=== PATIENT | female | born 1940 | race Caucasian/White ===

== ENCOUNTER 2016-09-27 22:37 | Emergency (ER) | payer MEDICARE, BC ==
[2015-10-10 13:34] VITALS: BMI 22.6
[~2016-09-27 22:37] MED LIST: AMOXICILLIN500 M1 PO; FLECAINIDE ACE100 MG PO; FLORINEF 0.1 M0.1 MG PO; PLAVIX75 MG PO; VALIUM5 MG PO
[2016-09-27 23:19] LABS: BASOPHILS 0.4 % (0.0-2.0); EOSINOPHILS 1.3 % (0-7); HEMATOCRIT 40.6 % (36.0-48.0); HEMOGLOBIN 13.7 g/dL (12-16); IMMATURE GRANULOCYTES 0.1 % (0-5); MCH 29.8 pg (26.0-34.0); MCHC 33.7 g/dL (31.0-37.0); MCV 88.5 fL (80.0-100.0); MONOCYTES 9.2 % (2-11); PLATELET COUNT 167 10x3/uL (130-400); RBC 4.59 10x6/uL (4.00-5.40); RDW 13.5 % (11.5-14.5); WBC 6.8 10x3/uL (4.8-10.8)
[2016-09-27 23:43] LABS: ALKALINE PHOSPHATASE 56 U/L (46-116); ALT (SGPT) 24 U/L (10-68); BILIRUBIN - TOTAL 0.37 mg/dL (0.2-1.3); CALC OSMOLALITY 286 mosm/kg (275-300); CALCIUM 9.5 mg/dL (8.5-10.1); CARBON DIOXIDE 28.6 mmol/L (21.0-32.0); CHLORIDE - SERUM 107 mmol/L (98-107); GLUCOSE 103 mg/dL (74-106); POTASSIUM - SERUM 4.7 mmol/L (3.5-5.1); PROTEIN - SERUM 6.7 g/dL (6.4-8.2); SODIUM 143 mmol/L (136-145); UREA NITROGEN 18 mg/dL (7-18); eGFR NON AFRICAN AMERICAN 57 mL/min (90-120)
[2016-09-28 00:02] LABS: APPEARANCE CLEAR (CLEAR); BILIRUBIN NEGATIVE (NEGATIVE); COLOR YELLOW (YELLOW); GLUCOSE NEGATIVE (NEGATIVE); KETONE NEGATIVE (NEGATIVE); LEUKOCYTE ESTERASE NEGATIVE (NEGATIVE); NITRITE NEGATIVE (NEGATIVE); PH 5.5 (5.0-6.0); PROTEIN NEGATIVE (NEGATIVE); SPECIFIC GRAVITY 1.005 (1.005-1.020); UROBILINOGEN NORMAL (NORMAL)
[2016-09-28 01:24] LABS: CKMB 2.4 U/L (0.0-3.6); CREATINE KINASE 143 UL (21-215)
[2016-09-28 01:35] LABS: TROPONIN-I < 0.017 ng/mL (0.000-0.060)
== END 2016-09-28 01:00 | disposition home or self-care (01) ==
LOC: D.ER 22:37
PROVIDERS: Emergency Medicine
DX: F41.9 Anxiety disorder, unspecified (principal); Z95.0 Presence of cardiac pacemaker; Z95.5 Presence of coronary angioplasty implant and graft

== ENCOUNTER → 2016-12-17 10:44 | Outpatient (CLI) | payer MEDICARE, BC ==
[2015-10-10 13:34] VITALS: BMI 22.6
[~2016-12-17 10:44] MED LIST changes: +EFFIENT10 MG PO
== END | disposition home or self-care (01) ==
LOC: D.CT 10:44
DX: M54.5 Low back pain (principal); R53.1 Weakness

== ENCOUNTER 2016-12-26 16:29 | Emergency (ER) | payer MEDICARE, BC ==
[2015-10-10 13:34] VITALS: BMI 22.6
[~2016-12-26 16:29] MED LIST changes: -EFFIENT10 MG PO
[2016-12-26 18:01] LABS: BASOPHILS 0.3 % (0.0-2.0); HEMATOCRIT 41.3 % (36.0-48.0); HEMOGLOBIN 13.7 g/dL (12-16); LYMPHOCYTES 45.7 % (15-50); MCHC 33.2 g/dL (31.0-37.0); MCV 90.4 fL (80.0-100.0); MEAN PLATELET VOLUME 10.7 fL (7.4-10.4); MONOCYTES 10.2 % (2-11); NEUTROPHILS 42.8 % (40-80); PLATELET COUNT 176 10x3/uL (130-400); RBC 4.57 10x6/uL (4.00-5.40); RDW 13.7 % (11.5-14.5); WBC 7.3 10x3/uL (4.8-10.8)
[2016-12-26 18:37] LABS: CALC OSMOLALITY 278 mosm/kg (275-300); CALCIUM 9.4 mg/dL (8.5-10.1); CHLORIDE - SERUM 103 mmol/L (98-107); CREATINE KINASE 217 UL (21-215); GLUCOSE 98 mg/dL (74-106); POTASSIUM - SERUM 4.4 mmol/L (3.5-5.1); PRO BNP 110 pg/mL (0-450); SODIUM 138 mmol/L (136-145); UREA NITROGEN 20 mg/dL (7-18); eGFR NON AFRICAN AMERICAN 57 mL/min (90-120)
[2016-12-26 18:45] LABS: TROPONIN-I < 0.017 ng/mL (0.000-0.060)
[2016-12-26 18:46] LABS: CKMB 4.5 U/L (0.0-3.6)
== END 2016-12-26 19:25 | disposition home or self-care (01) ==
LOC: D.ER 16:29
PROVIDERS: Family Medicine
DX: R06.00 Dyspnea, unspecified (principal); Z98.890 Other specified postprocedural states; F41.9 Anxiety disorder, unspecified; I49.5 Sick sinus syndrome; Z95.0 Presence of cardiac pacemaker; I44.7 Left bundle-branch block, unspecified

== ENCOUNTER 2016-12-28 09:16 | Outpatient (CLI) | payer MEDICARE, BC ==
[~2016-12-28] VITALS: Ht 165.1 cm; Wt 59.1 kg
--- NOTE | ~2016-12-28 | HEMODYNAMI ---
PATIENT:RENATA RIVERA MEDICAL RECORD: [id number] : 42 LOCATION:[facility] ADMISSION DATE: 12/28/16 Generatedon:12/28/201613:25 Patient name: RENATA RIVERA Patient #: [id number] SSN: DO B: 1940 Date of study: 12/28/2016 Page: Of Hemodynamic Procedure Report Patient Data Patient Demographics Procedure consent was obtained First Name: RENATA Gender: Female Last Name: MIGUEL : 1940 [facility] Initial: YUVAL Age: 76 year(s) Patient #: [id number] Race: Additional ID: [id number] Contact details [address]: [address] [place] [address] ROAD State: [place] City: [place] Zip code: [address] Past Medical History Allergies Allergen Reaction Date Comments Reported Other allergy 02/16/2015 CIPRO, FLAGYL Admission Admission Data Admission Date: 12/28/2016 Admission Time: 9:16 Procedure Procedure Types Cath Procedure Diagnostic Procedure LHC [facility] w/Coronaries FFR/IVUS Intra-Coronary IVUS Initial PCI Procedure Coronary Stent Initial Miscellaneous Procedures Moderate Sedation up to 15 minutes Procedure Description Procedure Date Procedure Date: 12/28/2016 Procedure Start Time: 13:07 Procedure End Time: 13:25 Procedure Staff Name Function Dago Medina MD Performing Physician Abelino Llanos RT Scrub Veronica Bhatia RN Nurse Lupillo Nunez RT Monitor Procedure Data Cath Procedure Fluoroscopy Diagnostic fluoroscopy Total fluoroscopy Time: 4.1 time: 4.1 min min Diagnostic fluoroscopy Total fluoroscopy dose: 232 dose: 232 mGy mGy Contrast Material Contrast Material Type Amount (ml) Isovue 300 93 Entry Location Entry Primary Successful Side Size Upsize Upsize Entry Closure Villeda ccessful Closure Location (Fr) 1 (Fr) 2 (Fr) Remarks Device Remarks Radial Right 6 Fr Mechanical artery Short Compression Estimated blood loss: 10 ml Diagnostic catheters Device Type Used For End Catheter Placement Terumo 5Fr [place] 110cm Procedure catheter Procedure Complications No complications Procedure Medications Medication Administration Route Dosage Oxygen NC 2 l/min Heparin Flush Bag added to field 2 bags (1000units/500ml NS) Lidocaine 2% added to field 20 Radial Cocktail added to field 1 syringe (Verapomil 2mg/Nitro 400mcg/Heparin 1500units) Versed I.V. 1 mg Fentanyl I.V. 50 mcg Radial Cocktail I.A. 1 syringe (Verapomil 2mg/Nitro 400mcg/Heparin 1500units) Versed I.V. 1 mg Fentanyl I.V. 50 mcg Fentanyl I.V. 50 mcg Heparin Bolus I.V. 4000 units Integrilin (Bolus I.V. 5 ml 2mg/ml) Effient P.O. 60 mg Hemodynamics Rest Heart Rate: 76 (bpm) Pressure Samples Time Site Value (mmHg) Purpose Heart Use Rate(bpm) 13:13 AO 95/50(67) Snapshot 76 Snapshots Pre Cath Intra NCS Post Cath Vital Signs Time Heart Resp SPO2 etCO2 [id number] NIBP (mmHg) Rhythm Pain Sedation Rate (ipm) (%) (mmHg) (mmHg) Status Level (bpm) 12:48:21 75 16 99 0 0 130/77(108) NSR 0 (11) 10(A) , No pain 12:52:33 77 13 100 0 0 129/83(98) NSR 0 (11) 10(A) , No pain 12:56:45 71 15 100 0 0 136/76(104) NSR 0 (11) 10(A) , No pain 13:01:01 70 16 100 0 0 128/72(106) NSR 0 (11) 10(A) , No pain 13:05:17 69 16 100 0 0 108/63(82) NSR 0 (11) 10(A) , No pain 13:09:27 75 16 100 0 0 115/62(96) NSR 0 (11) 9(A) , No pain 13:13:43 77 16 99 0 0 105/51(73) NSR 0 (11) 9(A) , No pain 13:17:51 90 22 97 0 0 103/75(93) NSR 0 (11) 9(A) , No pain 13:21:58 87 20 99 0 0 112/61(84) NSR 0 (11) 10(A) , No pain Medications Time Medication Route Dose Verified Delivered Reason Note s Effectiveness by by 12:52:25 Oxygen NC 2 l/min Dago Veronica Per physician Carol Bhatia RN 12:52:34 Heparin Flush added 2 bags Dago Loza used for Bag to Carol Medina MD procedure (1000units/500ml field NS) 12:52:42 Lidocaine 2% added 20ml Dago Mortensenrey used for to vial Carol Medina MD procedure field 12:52:50 Radial Cocktail added 1 Dago Dago used for (Verapomil to syringe Carol Medina MD procedure 2mg/Nitro field 400mcg/Heparin 1500units) 13:05:27 Versed I.V. 1 mg Dago Veronica for sedation Carol Bhatia RN 13:05:34 Fentanyl I.V. 50 mcg Dago Veronica for sedation Carol Bhatia RN 13:07:51 Versed I.V. 1 mg Dago Veronica for sedation Carol Bhatia RN 13:07:59 Fentanyl I.V. 50 mcg Dago Veronica for sedation Carol Bhatia RN 13:08:49 Radial Cocktail I.A. 1 Dago Dago for (Verapomil syringe Carol Medina MD vasodilation 2mg/Nitro 400mcg/Heparin 1500units) 13:09:12 Fentanyl I.V. 50 mcg Dago Veronica for sedation Carol Bhatia RN 13:13:34 Heparin Bolus I.V. 4000 Dago Veronica for dose units Carol Bhatia RN anticoagulation verified with dr medina 13:20:10 Integrilin I.V. 5 ml Dago Veronica for 5ml (Bolus 2mg/ml) Carol Bhatia RN antiplatelet wasted therapy 13:22:14 Effient P.O. 60 mg Dago Veronica for Carol Bhatia RN antiplatelet therapy Procedure Log Time Note 12:25:06 Veronica Bhatia RN sent for patient. Start room use. 12:31:55 ACC Patient presents with Stable Angina CCS Anginal Class 2--Slight limitation of ordinary activity. 12:31:58 Diagnostic Cath status Elective 12:40:51 Time tracking: Regular hours 12:41:02 Plan of Care:Hemodynamics will remain stable., Cardiac rhythm will remain stable., Comfort level will be maintained., Respiratory function will remain adequate., Patient/ family verbilizes understanding of procedure., Procedure tolerated without complication., Recovers from procedure without complications.. 12:41:10 Patient received from Pre/Post Procedure Room to CCL 1 Alert and oriented. Tansferred to table in Supine position. 12:41:12 Warm blankets applied, and tawanda hugger turned on for patient comfort. 12:41:13 Correct patient and procedure confirmed by team. 12:41:14 Signed procedure consent form obtained from patient. 12:41:15 ECG and BP/O2 sat monitors applied to patient. 12:47:12 Vital chart was started 12:52:25 Oxygen 2 l/min NC was administered by Veronica Bhatia RN; Per physician; 12:52:34 Heparin Flush Bag (1000units/500ml NS) 2 bags added to field was administered by Dago Medina MD; used for procedure; 12:52:42 Lidocaine 2% 20ml vial added to field was administered by Dago Medina MD; used for procedure; 12:52:50 Radial Cocktail (Verapomil 2mg/Nitro 400mcg/Heparin 1500units) 1 syringe added to field was administered by Dago Medina MD; used for procedure; 12:55:43 Baseline sample Acquired. 12:55:46 Rhythm: sinus rhythm 12:55:49 Full Disclosure recording started 12:56:14 H&P Date Dictated: 12/17/2016 Within 30 days and on chart., H&P Addendum completed by physician on day of procedure. (MUST COMPLETE FOR ALL OUTPATIENTS). 12:56:15 Pre-procedure instructions explained to patient. 12:56:15 Pre-op teaching completed and patient verbalized understanding. 12:56:17 Family in waiting room. 12:56:19 Patient NPO since Midnight. 12:56:22 Is the patient allergic to Iodine/contrast media? No. 12:56:28 Is patient on blood thinner?No 12:56:31 Patient diabetic? No. 12:56:33 Previous problem with sedation/anesthesia? No ? 12:56:35 Snore? No 12:56:36 Sleep apnea? No 12:56:37 Deviated septum? No 12:56:37 Opens mouth fully? Yes 12:56:38 Sticks out tongue? Yes 12:56:40 Airway obstruction? No ? 12:56:41 Dentures? No ? 12:56:44 Pre procedure: right dorsailis pedis pulse 1+ Palpable, but thready & weak; easily obliterated 12:56:46 Modified Gorge's test Ulnar < 7 seconds 12:56:48 Patient pain scale 0/10 ?. 12:56:55 IV patent on arrival in left forearm with 0.9% NaCl at [facility]. 12:57:02 Lab results completed and on chart. 12:57:07 Right Radial & Right Groin area was prepped with chlora-prep and draped in sterile fashion 12:57:15 Alarms reviewed by R. N. 12:57:16 Sharps counted by scrub and verified by R.N. 13:00:42 Zero performed for pressure channel P1 13:04:18 --------ALL STOP TIME OUT------ 13:04:18 Final Timeout: patient, procedure, and site verified with staff and physician. All members of the team are in agreement. 13:04:21 Right Radial & Right Groin site verified by team. 13:04:24 Physical assessment completed. ASA score P 2 - A patient with mild systemic disease as per Dago Medina MD. 13:04:27 Sedation plan: IV Moderate Sedation Versed, Fentanyl 13:05:27 Versed 1 mg I.V. was administered by Veronica Bhatia RN; for sedation; 13:05:34 Fentanyl 50 mcg I.V. was administered by Veronica Bhatia RN; for sedation; 13:07:34 Use device set Radial Dx 13:07:36 Acist Manifold opened to sterile field. 13:07:36 Tegaderm 4 x 4 opened to sterile field. 13:07:37 Acist Hand Control opened to sterile field. 13:07:39 Acist Syringe opened to sterile field. 13:07:39 Medline Cath Pack opened to sterile field. 13:07:39 Bag Decanter opened to sterile field. 13:07:40 Terumo 6Fr Slender Glidesheath opened to sterile field. 13:07:41 St Jeff 260cm J .035 wire opened to sterile field. 13:07:41 MBrace Wrist Support opened to sterile field. 13:07:47 Procedure started. 13:07:51 Versed 1 mg I.V. was administered by Veronica Bhatia RN; for sedation; 13:07:51 Local anesthetic to right radial artery with Lidocaine 2% by Dago Medina MD.INITIAL ACCESS ONLY 13:07:59 Fentanyl 50 mcg I.V. was administered by Veronica Bhatia RN; for sedation; 13:08:24 A 6 Fr Short sheath was inserted into the Right Radial artery 13:08:49 Radial Cocktail (Verapomil 2mg/Nitro 400mcg/Heparin 1500units) 1 syringe I.A. was administered by Dago Medina MD; for vasodilation; 13:09:07 A Integrateumo 5Fr [place] 110cm catheter was advanced over the wire and used for Procedure. 13:09:12 Fentanyl 50 mcg I.V. was administered by Veronica Bhatia RN; for sedation; 13:09:32 LV angiography performed. 13:09:34 LV gram done using BRIGGS 13:09:39 EF : 55 % 13:09:45 Injector settings: Ml/sec: 7, Volume: 15, 13:10:07 LCA angiography performed. 13:11:12 OfficialVirtualDJ BasixCompak Inflation Kit opened to sterile field. 13:11:12 Li Whisper J 300cm 0.014 guide wire opened to sterile field. 13:11:13 Trevor Hughes Eagleye IVUS Catheter opened to sterile field. 13:11:37 RCA angiography performed. 13:11:40 Catheter exchanged over wire. 13:11:54 Cordis 6FR XBLAD 3.5 guide catheter opened to sterile field. 13:13:14 6 Fr XBLAD 3.5 guide catheter was inserted over the wire 13:13:30 Whisper wire advanced. 13:13:34 Heparin Bolus 4000 units I.V. was administered by Veronica Bhatia RN; for anticoagulation; dose verified with dr medina 13:13:37 Wire advanced across lesion. 13:13:48 IVUS catheter advanced over wire. 13:14:05 IVUS pass to LAD lesion performed. 13:16:50 IVUS catheter removed over wire. 13:17:29 Procedure type changed to Cath procedure, Diagnostic procedure, LHC, LHC w/Coronaries, FFR/IVUS, Intra-Coronary IVUS Initial, PCI procedure, Coronary Stent Initial, Miscellaneous Procedures, Moderate Sedation up to 15 minutes 13:19:14 Inflation Number: 1 A Medtronic Integrity 2.75 X 12 stent was prepped and advanced across the Undefined1. The stent was deployed at 13 CLAUS for 0:10 (min:sec). 13:19:33 Multiple inflations made at 13 Atms. 13:19:43 Catheter removed. 13:19:53 Terumo TR Band Standard opened to sterile field. 13:20:10 Integrilin (Bolus 2mg/ml) 5 ml I.V. was administered by Veronica Bhatia RN; for antiplatelet therapy; 5ml wasted 13:20:21 Sheath removed intact; hemostasis achieved with Mechanical Compression to the Right Radial artery. 13:20:23 Procedure ended.(Physican Out) 13::14 Effient 60 mg P.O. was administered by Veronica Bhatia RN; for antiplatelet therapy; 13::22 Fluoroscopy time 04.10 minutes. 13:22:26 Flurop Dose total: 232 13:22:26 Fluoroscopy dose: 232 mGy 13:22:30 Contrast amount:Isovue 300 93ml. 13:22:32 Sharps counted by scrub and verified by R.N. 13:22:34 TR band inflated with 10cc of air. 13:22:35 Insertion/operative site no bleeding no hematoma. 13:22:38 Post Procedure Pulses reassessed and unchanged 13:22:41 Post-procedure physical assessment completed. ASA score P 2 - A patient with mild systemic disease as per Dago Medina MD. 13:22:45 Post procedure rhythm: unchanged. 13:22:48 Estimated blood loss: 10 ml 13:22:50 Post procedure instruction explained to patient.Patient verbalizes understanding. 13:22:51 Patient needs reinforcement of post procedure teaching. 13:22:51 Procedure and supply charges have been captured, reviewed, submitted and are correct. 13:22:54 Procedure Complication : No complications 13:25:13 Vital chart was stopped 13:25:14 See physician's report for complete and final results. 13:25:20 Report given to Pre/Post Procedure Room. 13:25:24 Patient transfered to Pre/Post Procedure Room with Stretcher. 13:25:26 Procedure ended. 13:25:26 Full Disclosure recording stopped 13:25:29 End room use (Document Last) Intervention Summary Intervention Notes Time ActionType Lesion and Equipment Action# Pressure Duration Attributes Used 13:19:[address] Place stent Undefined1 Medtronic 1 13 00:10 Integrity 2.75 X 12 stent Device Usage Item Name Manufacture Quantity Catalog Hospital Part Current Minimal Lot# / Number Charge Number Stock Stock Serial# Code Acist Acist 1 21993 415337 250258 491915 5 Manifold Medical Systems Inc Tegaderm 4 3M 1 1626W 604072 310366 886697 5 x 4 Acist Hand Acist 1 73309 329310 184396 551705 5 Control Medical Systems Inc Acist Acist 1 99939 583672 478962 989359 20 Syringe Medical Systems Inc Medline Cardinal 1 [id number] 704623 79758 833638 5 Cath Pack Health Bag Microtek 1 2002S 683018 48379 965094 5 Decanter Medical Inc. Terumo 6Fr Terumo 1 [id number] 183498 990320 175965 [address] St Jeff 1 803689 174512 958761 388235 30 260cm J .035 wire MBrace Advanced 1 140-0250-00 173370 12658 289361 5 Wrist Vascular Support Dynamics Terumo 5Fr Terumo 1 40-5005 659563 112951 431013 5 [place] 110cm catheter Merit Merit 1 [id number] 874491 729562 856711 15 BasixCompak Medical Inflation Kit Li Li 1 [id number] 448519 066001 607667 5 Whisper J Vascular 300cm 0.014 guide wire Trevor Trevor 1 [id number] 334663 748118 718042 8 Hughes Eagleye IVUS Catheter Cordis 6FR Cardinal 1 [id number] 299854 642984 319090 10 XBLAD 3.5 Health guide catheter Medtronic Medtronic 1 [id number] 204481 727886 5 [id number] Integrity 2.75 X 12 stent Terumo TR Terumo 1 [id number] 581021 254336 400430 40 Band Standard Signature Audit [place] Stage Time Signature Unsigned Intra-Procedure 12/28/2016 Lupillo Nunez 1:25:55 PM RT(R) Signatures Monitor : Lupillo Nunez RT Signature : Date : Time : [address] [place] [address]
[2016-12-28 10:40] VITALS: BP 135/73; Ht 165.1 cm; Wt 59.1 kg
[2016-12-28 11:38] LABS: BASOPHILS 0.3 % (0.0-2.0); EOSINOPHILS 0.4 % (0-7); HEMATOCRIT 41.4 % (36.0-48.0); HEMOGLOBIN 13.9 g/dL (12-16); IMMATURE GRANULOCYTES 0.1 % (0-5); LYMPHOCYTES 37.9 % (15-50); MCHC 33.6 g/dL (31.0-37.0); MCV 89.2 fL (80.0-100.0); MEAN PLATELET VOLUME 10.3 fL (7.4-10.4); MONOCYTES 6.7 % (2-11); NEUTROPHILS 54.6 % (40-80); PLATELET COUNT 174 10x3/uL (130-400); RBC 4.64 10x6/uL (4.00-5.40); RDW 13.9 % (11.5-14.5); WBC 7.9 10x3/uL (4.8-10.8)
[2016-12-28 11:47] LABS: ANION GAP 10.1 mmol/L (8-16); CALCIUM 9.2 mg/dL (8.5-10.1); CARBON DIOXIDE 24.7 mmol/L (21.0-32.0); CREATININE - SERUM 0.8 mg/dL (0.6-1.3); POTASSIUM - SERUM 3.8 mmol/L (3.5-5.1)
[2016-12-28] MEDS ORDERED: EFFIENT10 MG PO (13:53)
--- NOTE | 2016-12-28 17:59 | NUR ---
1400-RESTING, TR BAND IN PLACE, NO BLEEDING 1430-SLEEPING NO CHANGES
--- NOTE | 2016-12-28 18:12 | NUR ---
1600-EATING SANDWICH, TR BAND INTACT, NO BLEEDING 1630-2CC AIR REMOVED FROM TR BAND- NO BLEEDING 1645-3CC AIR REMOVED FROM TR BAND, NO CHANGES, PT VERY COMPLIANT 1700-3CC AIR REMOVED- NO BLEEDING OR HEMATOMA NOTED 1705-ALL AIR OUT OF TR BAND- NO BLEEDING OR HEMATOMA. UP TO REST ROOM- VOID 1720-IV D'C WITH CATH TIP INTACT, WRITTEN AND VERBAL INSTRUCTIONS GIVEN TO PT AND , VERBAL UNDERSTANDING NOTED. AT SIDE AND GOOD WITH GOING HOME. NO DISTRESS, NO HEMATOMA OR BLEEDING AT SITE- BAND AID APPLIED.
--- NOTE | 2017-01-11 08:58 | OP ---
PATIENT NAME: RENATA RIVERA MEDICAL RECORD: [id number] :42 LOCATION:D.CAT ADMISSION DATE: SURGEON: JASPREET HALL MD DATE OF OPERATION: 12/28/2016 PROCEDURES: 1. PTCA stent, LAD. 2. Intravascular ultrasound, LAD. 3. Left heart catheterization. 4. Selective coronary angiography. 5. Left ventriculogram. INDICATIONS: Angina and coronary artery disease. PROCEDURE IN DETAIL: After informed consent was obtained and after a detailed explanation of the risks, benefits as well as alternative therapies, the patient elected to proceed with angiogram and angioplasty. The right femoral area was prepped and draped in normal sterile fashion. The right femoral artery was cannulated via modified Seldinger technique with placement of 6-Nepali sheath. All catheters exchanged through this sheath. FINDINGS: The left ventriculogram was performed in standard 30-degree BRIGGS view, reveals good cardiac wall motion throughout all segments. Overall ejection fraction is 60%. SELECTIVE CORONARY ANGIOGRAPHY: 1. Left main showed no significant angiographic disease. 2. Left anterior descending has previously placed stent that is widely patent; however, distal to this, intravascular ultrasound confirmed that there is greater than 70% stenosis. 3. Left circumflex shows mild irregularities, but no flow-limiting stenosis. 4. Right coronary has mild irregularities, but no flow-limiting stenosis. PTCA STENT OF THE LAD: The stent used was 2.75 x 12 mm Integrity. Result was 0% residual stenosis. OVERALL IMPRESSION: Successful percutaneous transluminal coronary angioplasty stent of the left anterior descending going from 70%-75% initial stenosis to 0% residual. TRANSINT:[id number] Voice Confirmation ID: [id number] DOCUMENT ID: [id number] JASPREET HALL MD at 0858 CC: [id number] DICTATION DATE: 01/09/17 1619 FLUID POWER MECHANIC: 01/09/17 2341 [facility] CLI 12/28/[address] [address]
== END 2016-12-28 17:30 | disposition home or self-care (01) ==
LOC: D.CATH 09:16
PROVIDERS: Internal Medicine Interventional Cardiology
DX: I25.119 Atherosclerotic heart disease of native coronary artery with unspecified angina pectoris (principal); Z95.5 Presence of coronary angioplasty implant and graft

== ENCOUNTER 2017-02-22 07:04 | Day surgery (SDC) | payer MEDICARE, BC ==
[~2017-02-22] VITALS: Ht 165.1 cm; Wt 57.3 kg
--- NOTE | ~2017-02-22 | OP ---
PATIENT NAME: RENATA RIVERA MEDICAL RECORD: [id number] :42 LOCATION:[facility] ADMISSION DATE: SURGEON: AMOS LAWS DO DATE OF OPERATION: 02/22/2017 PROCEDURE: EGD with biopsy and ERCP with dilation of the biliary stricture, collection of biliary brushings, sphincterotomy, and biliary and pancreatic duct stent placement. INDICATIONS FOR PROCEDURE: Abnormal findings on CT and common bile duct dilation. SCOPE: Olympus video duodenoscope. MEDICATIONS: General anesthesia provided by anesthesia. ESTIMATED BLOOD LOSS: Minimal. COMPLICATIONS: None. FINDINGS: Informed consent was given. The patient was made comfortable with the above medication. After being intubated and moved in appropriate position, an Olympus gastroscope was placed through the mouth under direct visualization and advanced to the second portion of the duodenum. Regular viewing endoscopy revealed some erythema and granularity in the stomach consistent with gastritis. Two biopsies were taken to submit for histology and to rule out H. pylori. The regular endoscope was withdrawn from the patient and the side-viewing duodenoscope was placed through the mouth under direct visualization and advanced down to the second portion of the duodenum, where the ampulla was visualized. Multiple cannulation attempts were made and eventually, the pancreatic duct was cannulated. A pancreatogram was performed and revealed a normal-appearing pancreatic duct without strictures, stones or other abnormalities. A guidewire was left in place and biliary cannulation was achieved. A cholangiogram was performed with difficulty as the distal common bile duct would not fill with contrast. The intrahepatic ducts were visualized and were prominent, but not abnormal appearing. Sphincterotomies were performed on both the pancreatic duct sphincter and the biliary sphincter. A dilating balloon was placed into the bile duct and revealed that there was a mild stricture involving the distal common bile duct. This was dilated up to 4 mm using a [employer] Hurricane balloon. Balloon sweeps were performed without removal of calculi or other objects. A biliary cytology brush was placed into the duct and multiple brushings were performed. Fluid was aspirated and both of these will be sent for cytology. A 10-Salvadorean 7 cm straight plastic stent was placed in the bile duct and a 7-Salvadorean 10 cm straight plastic stent was placed in the pancreatic duct. I will bring the patient back within 1 week to remove these stents. The scope was withdrawn from the patient and images were acquired. The patient tolerated the procedure well and there were no complications. IMPRESSION: Distal common bile duct stricture. Biliary brushings and fluid aspiration was performed to send for cytology. At this time, this does not appear to be approximately malignant process. The patient has never had abnormal liver enzymes or lipase levels indicating that there is no obstruction. We will await biopsy results. OPERATIVE REPORT [id number] RENATA RIVERA PLAN AND RECOMMENDATIONS: 1. Return within 1 week for stent removal of both the bile duct stent and pancreatic duct stent. 2. Consider endoscopic ultrasound at [facility] [place] to confirm that there are no abnormalities within the pancreatobiliary system which has caused the abnormal CT findings. TRANSINT:[id number] Voice Confirmation ID: [id number] DOCUMENT ID: [id number] AMOS LAWS DO CC: [id number] DICTATION DATE: 02/22/17 1136 TRANSIT MIX OPERATOR: 02/22/172111 [facility] 02/22/17 [facility] [address] [place] [address]
[~2017-02-22 07:04] MED LIST changes: +EFFIENT10 MG PO
[2017-02-22 07:46] VITALS: BP 124/76; Ht 165.1 cm; Wt 57.3 kg
[2017-02-22 08:15] LABS: BASOPHILS 0.2 % (0-2); EOSINOPHILS 0.6 % (0-7); HEMATOCRIT 40.7 % (36.0-48.0); HEMOGLOBIN 13.6 g/dL (12-16); IMMATURE GRANULOCYTES 0.1 % (0-5); LYMPHOCYTES 21.8 % (15-50); MCH 30.2 pg (26.0-34.0); MCHC 33.4 g/dL (31.0-37.0); MCV 90.4 fL (80.0-100.0); MEAN PLATELET VOLUME 9.9 fL (7.4-10.4); NEUTROPHILS 71.3 % (40-80); PLATELET COUNT 186 10x3/uL (130-400); RDW 13.9 % (11.5-14.5); WBC 8.2 10x3/uL (4.8-10.8)
[2017-02-22 08:29] LABS: ALBUMIN 3.8 g/dL (3.4-5.0); ANION GAP 12.9 mmol/L (8-16); BILIRUBIN - TOTAL 0.5 mg/dL (0.2-1.3); CALCIUM 9.2 mg/dL (8.5-10.1); CARBON DIOXIDE 25.8 mmol/L (21.0-32.0); POTASSIUM - SERUM 3.7 mmol/L (3.5-5.1); PROTEIN - SERUM 6.8 g/dL (6.4-8.2)
[2017-02-22 08:51] LABS: INR 0.94 (0.85-1.17); PROTIME 12.4 SECONDS (11.6-15.0)
--- NOTE | 2017-02-22 11:47 | NUR ---
1 PANCREATIC AND BILIARY STENT PLACED PANCREATIC 7F X 10 CM. AND BILIARY 10F X 7CM PLACED.
--- NOTE | 2017-02-22 11:50 | NUR ---
EGD DONE ERCP WITH SPHINCTEROTOMY CYTOLOGY BRUSHINGS DILATED DUCT AND 2 STENTS PLACED.
--- NOTE | 2017-02-22 12:00 | NUR ---
24 CONTRAST USED AND 2.32 RADIOLOGY TIME.
--- NOTE | 2017-02-22 14:30 | NUR ---
IV REMOVED INTACT. DISCHARGE INSTRUCTIONS GIVEN, VOICED UNDERSTANDING. DRESSED AND READY FOR DISCHARGED. C/O EPIGASTRIC PAIN. I CALLED DR OLIVER AND LEFT MESSAGE TO CALL BACK CONCERNING PAIN. PATIENT AND INFORMED DR LAWS WAS CALLED AND MESSAGE LEFT, PATIENT STATES SHE DOES NOT WANT TO WAIT AND WOULD LIKE A WHEELCHAIR TO GO HOME.
--- NOTE | 2017-02-22 14:35 | NUR ---
DR LAWS HERE. INFORMED HIM PATIENT HAS LEFT AND THE PAIN SHE WAS HAVING. 'S CELL PHONE GIVEN TO HIM.
== END 2017-02-22 14:30 | disposition home or self-care (01) ==
LOC: D.OPS 07:04
PROVIDERS: Anesthesiology; Internal Medicine Gastroenterology
DX: K83.1 Obstruction of bile duct (principal); K29.50 Unspecified chronic gastritis without bleeding

== ENCOUNTER 2017-02-25 08:21 | Observation (INO) | payer MEDICARE, BC ==
[2017-02-25] VITALS (7 sets, daily range): BP systolic 114–144; BP diastolic 69–81; Ht 165.1 cm; Wt 57.3 kg
[~2017-02-25] VITALS: Ht 165.1 cm; Wt 57.3 kg
--- NOTE | ~2017-02-25 | OP ---
PATIENT NAME: RENATA RIVERA MEDICAL RECORD: [id number] :42 LOCATION:D.MS Philippe2214 ADMISSION DATE:02/25/17 SURGEON: AMOS LAWS DO DATE OF OPERATION: 02/25/2017 PROCEDURE: EGD with biliary and pancreatic stent removal. INDICATIONS: Removal of stents status post ERCP 3 days ago. SCOPE: Olympus video gastroscope. MEDICATIONS: Propofol 120 mg IV per anesthesia. ESTIMATED BLOOD LOSS: Minimal. COMPLICATIONS: None. FINDINGS: Informed consent was given. The patient was made comfortable with the above medication. After reaching an adequate level of sedation by slow IV push, the patient was placed on her left side. The endoscope was then advanced under direct visualization down to the second portion of the duodenum where the ampulla was visualized. The biliary stent was removed first using a snare and completely removed with the endoscope to take the stent out. Scope was then advanced back down through the mouth under direct visualization to the second portion of the duodenum where the pancreatic stent was then grasp with a snare and removed out through the mouth with the endoscope. The procedure was terminated at this time. The patient tolerated the procedure well and there were no complications. IMPRESSION: 1. Status post biliary and pancreatic stent removal. 2. Admission for constipation and severe left lower quadrant pain. PLAN AND RECOMMENDATIONS: 1. Return to floor. 2. Start Dulcolax suppositories and possibly enemas. 3. Continue current management medications. TRANSINT:[id number] Voice Confirmation ID: [id number] DOCUMENT ID: [id number] AMOS LAWS DO CC: [id number] DICTATION DATE: 02/25/17 1220 CUSTOMER SERVICE ATTENDANT: 02/26/17 0007 ADM IN [facility] [address] [place] [id number]
[2017-02-25 09:13] LABS: BASOPHILS 0.3 % (0-2); EOSINOPHILS 1.2 % (0-7); HEMATOCRIT 44.9 % (36.0-48.0); HEMOGLOBIN 14.9 g/dL (12-16); IMMATURE GRANULOCYTES 0.1 % (0-5); MCH 30.1 pg (26.0-34.0); MCHC 33.2 g/dL (31.0-37.0); MCV 90.7 fL (80.0-100.0); MONOCYTES 7.8 % (2-11); NEUTROPHILS 65.6 % (40-80); PLATELET COUNT 189 10x3/uL (130-400); RBC 4.95 10x6/uL (4.00-5.40); RDW 13.9 % (11.5-14.5); WBC 7.3 10x3/uL (4.8-10.8)
[2017-02-25 09:23] LABS: APPEARANCE CLOUDY (CLEAR); BILIRUBIN NEGATIVE (NEGATIVE); COLOR YELLOW (YELLOW); GLUCOSE NEGATIVE (NEGATIVE); KETONE MODERATE mg/dL (NEGATIVE); LEUKOCYTE ESTERASE TRACE (NEGATIVE); NITRITE NEGATIVE (NEGATIVE); PROTEIN NEGATIVE (NEGATIVE); UROBILINOGEN NORMAL (NORMAL)
[2017-02-25 09:26] LABS: AMORPHOUS SEDIMENT >1+ /lpf (NONE SEEN); BACTERIA MODERATE /hpf (NONE SEEN); MUCUS >1+ /lpf (NONE SEEN); RED CELLS - URINE 0-5 /hpf (0-5)
[2017-02-25 09:36] LABS: ALBUMIN 3.6 g/dL (3.4-5.0); ANION GAP 13.3 mmol/L (8-16); BILIRUBIN - TOTAL 0.78 mg/dL (0.2-1.3); CALCIUM 9.6 mg/dL (8.5-10.1); CARBON DIOXIDE 27.5 mmol/L (21.0-32.0); POTASSIUM - SERUM 3.8 mmol/L (3.5-5.1); PROTEIN - SERUM 7.2 g/dL (6.4-8.2)
--- NOTE | 2017-02-25 12:40 | NUR ---
RECEIVED TO ROOM 2214 VIA STRETCHER FROM GI LAB. A/O X3. NO C/O AT THIS TIME. FAMILY AT BEDSIDE. DENIES NEEDS. VSS. SKIN INTACT. LUNCH TRAY SERVED IN ROOMM.
--- NOTE | 2017-02-25 14:15 | NUR ---
GIVEN 1000CC ENEMA IN 4 ROUNDS WITH ONLY ONE QUARTER SIZED BALL RETURNED. WILL GIVE A BREAK AND SEE. IF SSECOND BAG WILL BREAK LOOSE THE DAMN.
--- NOTE | 2017-02-25 16:49 | NUR ---
PT LYING IN BED VISITING W/ SP. BED IN LOW POSITION, CALL LIGHT IN REACH. VERBALIZED NO OTHER NEEDS AT THIS TIME
[2017-02-26] VITALS: BP 110/69
--- NOTE | 2017-02-26 03:02 | NUR ---
RESTING WITH EYES CLOSED, NO DISTRESS NOTED, FALL PRECAUTIONS IN PLACE, CL IN REACH
[2017-02-26 04:00] VITALS: BP 93/63
--- NOTE | 2017-02-26 08:03 | HP ---
PATIENT: RENATA RIVERA MEDICAL RECORD: [id number] ACCOUNT: [id number] LOCATION:D.MS [id number] : 42 ADMISSION DATE: 02/25/17 HISTORY AND PHYSICAL EXAMINATION DATE ASSIGNED TO OBSERVATION: 02/25/2017 CHIEF COMPLAINT: Abdominal pain. HISTORY OF PRESENT ILLNESS: A 76-year-old female who was recently seen by Dr. Castillo for ongoing GI concerns. She had had some abnormal findings on CT including common bile duct dilatation. Dr. Castillo performed on 02/22/2017 an EGD with biopsy as well as an ERCP with dilation of biliary stricture, collection of biliary brushings, sphincterotomy, biliary and pancreatic duct stent placement. Dr. Castillo was going to have the stents removed later this week, but the patient was complaining of some abdominal pain throughout the week and she had not had a bowel movement in 5 days. This morning, she had acute onset of sharp left lower quadrant abdominal pain as she had had before when she had constipation. She had no nausea or vomiting. She came to the Emergency Department this morning. A noncontrast CT of abdomen and pelvis showed nonspecific gallbladder wall thickening. There were no obstructions, pancreas appeared normal. Spleen and adrenals were unremarkable. There was no evidence of diverticulitis. It was felt she was constipated. She was assigned to observation to have bowel movements. Dr. Castillo was consulted to remove the stents that he placed on 02/22/2017. PAST MEDICAL AND SURGICAL HISTORY: The patient has a history of anxiety and depression with panic attacks since . She had coronary artery disease with stents followed by Dr. Medina. She has had sick sinus syndrome with a pacemaker, Lyme disease in 1986. She has had admissions for diverticulitis into the hospital. She has had hysterectomy, pacemaker and lysis of adhesions in 2010. HOME MEDICATIONS: Include Flexeril 10 mg t.i.d. p.r.n. muscle spasm, alprazolam 0.25 mg t.i.d. p.r.n. anxiety, diazepam 5 mg 3 times a day p.r.n. anxiety, Paxil 10 mg once a day, Florinef 0.1 tablet twice a day as needed for low blood pressure. ALLERGIES: REPORTED TO CIPRO, FLAGYL AND PLAVIX. SOCIAL HISTORY: , retired. HABITS: Never smoked. No history of alcohol or drug use. FAMILY HISTORY: Father at 67 of lung cancer, he had dementia. Mother at 84 of a stroke. Sister at 54 of lung cancer. Brother of some sort of cancer and another brother of an [place]. REVIEW OF SYSTEMS: GENERAL: She has been concerned over the last few months because she has had a mild weight loss and she is definitely concerned about cancer because it is so prevalent in her family. CARDIAC: No chest pain right now. She does have a history of coronary artery disease as well as sick sinus syndrome with pacemaker. RESPIRATORY: No history of asthma or emphysema. GASTROINTESTINAL: She has had recurrent diverticulitis infections. No HISTORY AND PHYSICAL [id number] RENATA RIVERA significant reflux. MUSCULOSKELETAL: No significant arthritis. NEUROLOGIC: No migraines or seizures. PSYCHIATRIC: She has had anxiety with panic attacks since the . PHYSICAL EXAMINATION: VITAL SIGNS: Today, temperature 98.2, pulse 90, respirations 16, blood pressure 114/79, O2 sat 93%. GENERAL: She does not appear in acute distress. She is awake and alert. She has already had procedure by Dr. Castillo today to remove the biliary and pancreatic stents. HEENT: Grossly within normal limits. NECK: Supple. No JVD or bruit. HEART: Regular rate and rhythm without murmur. LUNGS: Clear. ABDOMEN: Currently is soft. There is some mild tenderness to palpation. No guarding, no rebound, no mass. EXTREMITIES: No edema. LABORATORY DATA: CBC showed a white count of 7300, hemoglobin 14.9, hematocrit 44.9, platelets number 189,000. Basic metabolic panel is all normal. Liver functions are all normal. Amylase 77, lipase 351. Urinalysis is yellow and cloudy with moderate ketones, trace blood, trace leukocyte esterase, 5-10 epithelial cells, moderate bacteria. This was a contaminated specimen with the high epithelial cell count. CT of abdomen and pelvis without contrast today showed stents in the common bile duct and pancreatic duct. No intrahepatic biliary dilatation is seen. There appears to be gallbladder wall thickening, which is nonspecific, but cholecystitis cannot be excluded. There is diverticulosis noted. ASSESSMENT: 1. Abdominal pain. 2. No bowel movement in 5 days equals constipation. 3. Common bile duct dilation with common bile duct stents and pancreatic duct stents, now removed by Dr Castillo. PLAN: Enema is ordered by Dr. Castillo and anticipate discharge tomorrow morning. TRANSINT:[id number] Voice Confirmation ID: [id number] DOCUMENT ID: [id number] SHAUNA RYAN MD at 0803 CC: [id number] DICTATION DATE: 02/25/172046 CAFE COOK: 02/26/17 0244 ADM IN [facility] [address] [id number]
[2017-02-26 08:49] VITALS: BP 98/62
--- NOTE | 2017-02-26 09:13 | NUR ---
DID A TAP WATER ENEMA, PATIENT HELD 400ML OF FLUID. OUTPUT WAS CLEAR WITH TRACES OF BROWN STOOL.
--- NOTE | 2017-02-26 10:30 | NUR ---
D/C IV WITH CATHETER INTACT. DISCHARGE INSTRUCTIONS COMPLETED WITH PATIENT. PATIENT DENIES QUESTIONS. PATIENT LEFT VIA WHEELCHAIR.
== END 2017-02-26 10:30 | disposition home or self-care (01) ==
LOC: D.ER 08:21 → OBSVTIME 11:21 → D.MS 11:21
PROVIDERS: Emergency Medicine; ADMIT Family Medicine
DX: R10.32 Left lower quadrant pain (principal); K59.00 Constipation, unspecified; F41.9 Anxiety disorder, unspecified; F32.9 Major depressive disorder, single episode, unspecified

== ENCOUNTER → 2017-04-26 10:00 | Outpatient (CLI) | payer MEDICARE, BC ==
[2017-02-25 12:46] VITALS: BMI 21.0
[2017-04-26 11:37] LABS: ALBUMIN 3.7 g/dL (3.4-5.0); BILIRUBIN - DIRECT 0.08 mg/dL (0.00-0.30); BILIRUBIN - INDIRECT 0.34 mg/dL (0.00-1.00); BILIRUBIN - TOTAL 0.42 mg/dL (0.2-1.3); PROTEIN - SERUM 6.9 g/dL (6.4-8.2); THYROID STIMULATING HORMONE 1.6 uIU/mL (0.36-3.74)
== END | disposition home or self-care (01) ==
LOC: D.LAB 10:00
PROVIDERS: Internal Medicine Gastroenterology
DX: R63.4 Abnormal weight loss (principal)

== ENCOUNTER → 2017-06-18 11:29 | Outpatient (CLI) | payer MEDICARE, BC ==
[2017-02-25 12:46] VITALS: BMI 21.0
== END | disposition home or self-care (01) ==
LOC: D.CT 11:29
DX: R63.4 Abnormal weight loss (principal)

== ENCOUNTER → 2017-06-21 11:17 | Outpatient (CLI) | payer MEDICARE, BC ==
[2017-02-25 12:46] VITALS: BMI 21.0
== END | disposition home or self-care (01) ==
LOC: D.US 11:00
DX: R93.5 Abnormal findings on diagnostic imaging of other abdominal regions, including retroperitoneum (principal)

== ENCOUNTER → 2017-07-23 10:50 | Outpatient (CLI) | payer MEDICARE, BC ==
[2017-02-25 12:46] VITALS: BMI 21.0
== END | disposition home or self-care (01) ==
LOC: D.LAB 10:50
DX: R63.4 Abnormal weight loss (principal)

== ENCOUNTER 2017-08-13 09:10 | Emergency (ER) | payer MEDICARE, BC ==
[2017-02-25 12:46] VITALS: BMI 21.0
[2017-08-13 09:40] LABS: BASOPHILS 0.3 % (0-2); EOSINOPHILS 0.6 % (0-7); HEMATOCRIT 44.7 % (36.0-48.0); HEMOGLOBIN 15.2 g/dL (12-16); IMMATURE GRANULOCYTES 0.1 % (0-5); LYMPHOCYTES 31.8 % (15-50); MCH 30.6 pg (26.0-34.0); MCV 89.9 fL (80.0-100.0); MEAN PLATELET VOLUME 10.4 fL (7.4-10.4); MONOCYTES 8.4 % (2-11); NEUTROPHILS 58.8 % (40-80); PLATELET COUNT 222 10x3/uL (130-400); RBC 4.97 10x6/uL (4.00-5.40); RDW 13.6 % (11.5-14.5); WBC 7.7 10x3/uL (4.8-10.8)
[2017-08-13 10:00] LABS: ALBUMIN 3.9 g/dL (3.4-5.0); ALKALINE PHOSPHATASE 65 U/L (46-116); ALT (SGPT) 22 U/L (10-68); BILIRUBIN - TOTAL 0.59 mg/dL (0.2-1.3); CALC OSMOLALITY 277 mosm/kg (275-300); CALCIUM 9.4 mg/dL (8.5-10.1); CARBON DIOXIDE 24.9 mmol/L (21.0-32.0); CHLORIDE - SERUM 103 mmol/L (98-107); CREATININE - SERUM 1.1 mg/dL (0.6-1.3); GLUCOSE 104 mg/dL (74-106); POTASSIUM - SERUM 4.1 mmol/L (3.5-5.1); PROTEIN - SERUM 7.5 g/dL (6.4-8.2); SODIUM 138 mmol/L (136-145); UREA NITROGEN 17 mg/dL (7-18); eGFR NON AFRICAN AMERICAN 51 mL/min (90-120)
[2017-08-13 10:07] LABS: CKMB 2.8 U/L (0.0-3.6); CREATINE KINASE 181 UL (21-215)
[2017-08-13 10:09] LABS: TROPONIN-I < 0.017 ng/mL (0.000-0.060)
== END 2017-08-13 11:21 | disposition home or self-care (01) ==
LOC: D.ER 09:10
PROVIDERS: Emergency Medicine
DX: R00.0 Tachycardia, unspecified (principal); I25.10 Atherosclerotic heart disease of native coronary artery without angina pectoris; Z95.0 Presence of cardiac pacemaker; I45.4 Nonspecific intraventricular block

== ENCOUNTER → 2017-09-20 10:22 | Outpatient (CLI) | payer MEDICARE, BC ==
[2017-02-25 12:46] VITALS: BMI 21.0
== END | disposition home or self-care (01) ==
LOC: D.US 10:22
DX: R93.5 Abnormal findings on diagnostic imaging of other abdominal regions, including retroperitoneum (principal); N28.89 Other specified disorders of kidney and ureter

== ENCOUNTER → 2018-02-13 14:09 | Outpatient (CLI) | payer MEDICARE, BC ==
[2017-02-25 12:46] VITALS: BMI 21.0
[~2018-02-13 14:09] MED LIST changes: +AUGMENTIN 875-11 TAB PO; +SMZ/TMP DS TAB 800 PO
[2018-02-13 15:29] LABS: BASOPHILS 0.1 % (0-2); EOSINOPHILS 0.5 % (0-7); HEMATOCRIT 39.2 % (36.0-48.0); HEMOGLOBIN 13.5 g/dL (12-16); IMMATURE GRANULOCYTES 0.2 % (0-5); LYMPHOCYTES 22.7 % (15-50); MCH 30.8 pg (26.0-34.0); MCHC 34.4 g/dL (31.0-37.0); MCV 89.5 fL (80.0-100.0); MEAN PLATELET VOLUME 9.8 fL (7.4-10.4); MONOCYTES 9.3 % (2-11); NEUTROPHILS 67.2 % (40-80); PLATELET COUNT 189 10x3/uL (130-400); RBC 4.38 10x6/uL (4.00-5.40); RDW 13.7 % (11.5-14.5); WBC 9.7 10x3/uL (4.8-10.8)
== END | disposition home or self-care (01) ==
LOC: D.LAB 14:09 → D.CT 14:30
PROVIDERS: Internal Medicine Gastroenterology
DX: R10.32 Left lower quadrant pain (principal)

== ENCOUNTER 2018-02-20 16:23 | Inpatient (IN) | payer MEDICARE, BC ==
[~2018-02-20] VITALS: Ht 165.1 cm; Wt 53.2 kg
--- NOTE | ~2018-02-20 | HP ---
PATIENT: RENATA RIVERA MEDICAL RECORD: [id number] ACCOUNT: [id number] LOCATION:D.MS [id number] : 42 ADMISSION DATE: 02/20/18 HISTORY AND PHYSICAL EXAMINATION DATE OF ADMISSION: 02/20/2018 CHIEF COMPLAINT: Abdominal pain. HISTORY OF PRESENT ILLNESS: This is a 77-year-old female who has had recurrent diverticulitis and has been either admitted into the hospital or treated at least 4 times over the last approximately [address] of her abdomen on 02/13/2018 that showed some mucosal thickening in the sigmoid colon and diverticula. She saw Dr. Diaz last week and put her on Bactrim because she is allergic to Flagyl and Cipro, it did not help, so she came into the ER last night with continued pain. A repeat CT shows about the same. Her CBC showed a white count of 14,200 last night in the ER. Liver functions and lipase were all okay. She is admitted for diverticulitis, failed outpatient treatment. PAST MEDICAL HISTORY: Otherwise she has history of anxiety, coronary artery disease, sick sinus syndrome, Lyme disease in 1986, depression. PAST SURGICAL HISTORY: Coronary stents, hysterectomy, pacemaker and lysis of adhesions in 2010. HOME MEDICATIONS: She will take Valium 5 mg p.r.n. anxiety, but takes it rarely. She will take Florinef 0.1 mg twice a day when her blood pressure is low, takes it rarely. She also has flecainide to take twice a day, but states she only takes it p.r.n. ALLERGIES: TO CIPRO, FLAGYL, PLAVIX, TRAMADOL. SOCIAL HISTORY: She is retired, . 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 FAMILY HISTORY: Father at 67 of lung cancer. Mother at 84. She had dementia and stroke. Sister at 54 of lung cancer. Brother at 67 of an [place], another brother of cancer. REVIEW OF SYSTEMS: GENERAL: She has slowly lost weight over the last year or more. HEENT: No particular sinus or allergy problems. RESPIRATORY: No history of COPD or asthma. CARDIAC: See above history, followed by [facility]. GASTROINTESTINAL: History of recurrent diverticulitis followed by Dr. Castillo. GENITOURINARY: No significant problems there. MUSCULOSKELETAL: No significant joint aches or pains. NEUROLOGIC: No migraines or seizures. PSYCHIATRIC: She has depression/anxiety. PHYSICAL EXAMINATION: VITAL SIGNS: Today, temperature 98.8, pulse 69, respirations 18, blood pressure 90/45, O2 sat 95%. GENERAL: She does not appear in acute distress at this time. HEENT: Unremarkable. HISTORY AND PHYSICAL [id number] RENATA RIVERA NECK: Supple. HEART: Regular rate and rhythm. LUNGS: Fairly clear. ABDOMEN: Soft. There is some generalized tenderness in the left lower quadrant. No guarding, no rebound, no mass. PELVIC: Not done at this time. EXTREMITIES: No edema. IMAGING: CT of the abdomen and pelvis shows mucosal thickening, mostly in the sigmoid colons consistent with diverticulitis. ASSESSMENT: Continue diverticulitis. PLAN: Discussed with Dr. Diaz. We will treat with Merrem 1 gram IV daily. Start with clear liquid diet and advance as tolerated. She really needs to get healed so she can have colonoscopy and possibly talk to a surgeon about sigmoidectomy with her multiple episodes of diverticulitis. Other tests or procedures as warranted. TRANSINT:[id number] Voice Confirmation ID: [id number] DOCUMENT ID: [id number] SHAUNA RYAN MD at 2306 CC: [id number] DICTATION DATE: 02/21/1844 CLOTH FOLDER MACHINE: 02/21/18 0949 ADM IN [facility] [address] [place] [address]
[~2018-02-20 16:23] MED LIST changes: -AUGMENTIN 875-11 TAB PO; -SMZ/TMP DS TAB 800 PO
[2018-02-20 17:10] VITALS: BP 119/72
[2018-02-20 17:25] LABS: BASOPHILS 0.2 % (0-2); EOSINOPHILS 0.4 % (0-7); HEMATOCRIT 40.2 % (36.0-48.0); HEMOGLOBIN 13.5 g/dL (12-16); IMMATURE GRANULOCYTES 0.3 % (0-5); LYMPHOCYTES 20.1 % (15-50); MCH 30.3 pg (26.0-34.0); MCHC 33.6 g/dL (31.0-37.0); MCV 90.1 fL (80.0-100.0); MEAN PLATELET VOLUME 9.6 fL (7.4-10.4); MONOCYTES 7.1 % (2-11); NEUTROPHILS 71.9 % (40-80); RBC 4.46 10x6/uL (4.00-5.40); RDW 13.4 % (11.5-14.5); WBC 14.2 10x3/uL (4.8-10.8)
[2018-02-20 17:26] LABS: PLATELET COUNT 266 10x3/uL (130-400)
[2018-02-20 17:26] LABS: APPEARANCE CLEAR (CLEAR); COLOR YELLOW (YELLOW); GLUCOSE NEGATIVE (NEGATIVE); KETONE NEGATIVE (NEGATIVE); NITRITE NEGATIVE (NEGATIVE); PROTEIN NEGATIVE (NEGATIVE); UROBILINOGEN NORMAL (NORMAL)
[2018-02-20 17:27] LABS: BILIRUBIN 1+ (NEGATIVE)
[2018-02-20 17:30] VITALS: BP 127/63
[2018-02-20 18:00] VITALS: BP 120/64
[2018-02-20 18:20] VITALS: BP 127/67
[2018-02-20 18:30] VITALS: BP 122/68
[2018-02-20 19:15] LABS: ALBUMIN 3.5 g/dL (3.4-5.0); ANION GAP 16.1 mmol/L (8-16); BILIRUBIN - TOTAL 0.33 mg/dL (0.2-1.3); CALCIUM 9.5 mg/dL (8.5-10.1); CARBON DIOXIDE 23.6 mmol/L (21.0-32.0); CREATININE - SERUM 1.5 mg/dL (0.6-1.3); POTASSIUM - SERUM 4.7 mmol/L (3.5-5.1); PROTEIN - SERUM 7.8 g/dL (6.4-8.2)
[2018-02-21] VITALS (7 sets, daily range): BP systolic 90–105; BP diastolic 45–57; Ht 165.1 cm; Wt 53.2 kg
[2018-02-21] MEDS ORDERED: SMZ/TMP DS TAB 800 PO (00:19)
[2018-02-21 06:45] LABS: BASOPHILS 0.2 % (0-2); EOSINOPHILS 1.3 % (0-7); HEMATOCRIT 35.1 % (36.0-48.0); HEMOGLOBIN 11.6 g/dL (12-16); IMMATURE GRANULOCYTES 0.1 % (0-5); LYMPHOCYTES 26.8 % (15-50); MCV 90.7 fL (80.0-100.0); MEAN PLATELET VOLUME 9.2 fL (7.4-10.4); MONOCYTES 8.5 % (2-11); NEUTROPHILS 63.1 % (40-80); PLATELET COUNT 229 10x3/uL (130-400); RBC 3.87 10x6/uL (4.00-5.40); RDW 13.6 % (11.5-14.5)
[2018-02-21 06:53] LABS: WBC 8.5 10x3/uL (4.8-10.8)
[2018-02-21 07:07] LABS: ANION GAP 11.9 mmol/L (8-16); CALCIUM 8.7 mg/dL (8.5-10.1); CARBON DIOXIDE 24.5 mmol/L (21.0-32.0); CREATININE - SERUM 1.2 mg/dL (0.6-1.3); POTASSIUM - SERUM 4.4 mmol/L (3.5-5.1)
[2018-02-22] VITALS: BP 116/56
[2018-02-22 04:00] VITALS: BP 126/77
[2018-02-22 06:05] LABS: BASOPHILS 0.3 % (0-2); EOSINOPHILS 1.9 % (0-7); HEMATOCRIT 36.5 % (36.0-48.0); HEMOGLOBIN 12.1 g/dL (12-16); IMMATURE GRANULOCYTES 0.3 % (0-5); LYMPHOCYTES 27.5 % (15-50); MCHC 33.2 g/dL (31.0-37.0); MCV 90.3 fL (80.0-100.0); MEAN PLATELET VOLUME 9.6 fL (7.4-10.4); PLATELET COUNT 247 10x3/uL (130-400); RBC 4.04 10x6/uL (4.00-5.40); RDW 13.6 % (11.5-14.5)
[2018-02-22 06:25] LABS: ANION GAP 11.4 mmol/L (8-16); CALCIUM 8.9 mg/dL (8.5-10.1); CARBON DIOXIDE 26.9 mmol/L (21.0-32.0); POTASSIUM - SERUM 4.3 mmol/L (3.5-5.1)
[2018-02-22 10:15] VITALS: BP 92/56
[2018-02-22] MEDS ORDERED: AUGMENTIN 875-11 TAB PO (12:04)
[2018-02-22 12:17] VITALS: BP 104/55
== END 2018-02-22 13:43 | disposition home or self-care (01) | DRG 392 ==
LOC: D.ER 16:23 → D.MS 23:07
PROVIDERS: Family Medicine; Internal Medicine Gastroenterology
DX: K57.32 Diverticulitis of large intestine without perforation or abscess without bleeding (principal); K59.00 Constipation, unspecified; F41.9 Anxiety disorder, unspecified; I25.10 Atherosclerotic heart disease of native coronary artery without angina pectoris; Z95.0 Presence of cardiac pacemaker; Z95.5 Presence of coronary angioplasty implant and graft

== ENCOUNTER 2018-03-26 05:13 | Emergency (ER) | payer MEDICARE, BC ==
[~2018-03-26] VITALS: Ht 165.1 cm; Wt 65.9 kg
[~2018-03-26 05:13] MED LIST changes: +AUGMENTIN 875-11 TAB PO; +SMZ/TMP DS TAB 800 PO
[2018-03-26 05:30] VITALS: Ht 165.1 cm; Wt 65.9 kg
[2018-03-26 06:05] LABS: BASOPHILS 0.4 % (0-2); HEMATOCRIT 42.4 % (36.0-48.0); HEMOGLOBIN 14.1 g/dL (12-16); IMMATURE GRANULOCYTES 0.1 % (0-5); MCH 30.1 pg (26.0-34.0); MCHC 33.3 g/dL (31.0-37.0); MCV 90.4 fL (80.0-100.0); MEAN PLATELET VOLUME 9.9 fL (7.4-10.4); NEUTROPHILS 42.5 % (40-80); PLATELET COUNT 200 10x3/uL (130-400); RBC 4.69 10x6/uL (4.00-5.40); RDW 13.7 % (11.5-14.5); WBC 7.9 10x3/uL (4.8-10.8)
[2018-03-26 06:21] LABS: ALBUMIN 3.6 g/dL (3.4-5.0); ALKALINE PHOSPHATASE 62 U/L (46-116); ALT (SGPT) 18 U/L (10-68); BILIRUBIN - TOTAL 0.37 mg/dL (0.2-1.3); CALC OSMOLALITY 277 mosm/kg (275-300); CALCIUM 8.9 mg/dL (8.5-10.1); CARBON DIOXIDE 27.9 mmol/L (21.0-32.0); CHLORIDE - SERUM 106 mmol/L (98-107); CREATININE - SERUM 0.9 mg/dL (0.6-1.3); GLUCOSE 99 mg/dL (74-106); POTASSIUM - SERUM 3.8 mmol/L (3.5-5.1); PROTEIN - SERUM 6.8 g/dL (6.4-8.2); SODIUM 138 mmol/L (136-145); UREA NITROGEN 19 mg/dL (7-18); eGFR NON AFRICAN AMERICAN 64 mL/min (90-120)
[2018-03-26 06:27] LABS: APTT 37.2 SECONDS (22.8-39.4); INR 0.96 (0.85-1.17); PROTIME 12.3 SECONDS (11.6-15.0)
[2018-03-26 06:33] LABS: CKMB 2.4 U/L (0.0-3.6); CREATINE KINASE 152 UL (21-215); PRO BNP 140 pg/mL (0-450)
[2018-03-26 06:41] LABS: TROPONIN-I < 0.017 ng/mL (0.000-0.060)
[2018-03-26 07:33] LABS: APPEARANCE CLEAR (CLEAR); BILIRUBIN NEGATIVE (NEGATIVE); COLOR STRAW (YELLOW); GLUCOSE NEGATIVE (NEGATIVE); KETONE NEGATIVE (NEGATIVE); NITRITE NEGATIVE (NEGATIVE); PROTEIN NEGATIVE (NEGATIVE); SPECIFIC GRAVITY 1.005 (1.005-1.020); UROBILINOGEN NORMAL (NORMAL)
[2018-03-26 09:18] VITALS: BP 94/76
== END 2018-03-27 14:10 | disposition home or self-care (01) ==
LOC: D.ER 05:13
PROVIDERS: Emergency Medicine; Family Medicine
DX: I48.91 Unspecified atrial fibrillation (principal); R53.83 Other fatigue; R00.2 Palpitations; Z95.0 Presence of cardiac pacemaker

== ENCOUNTER 2018-04-21 07:47 | Day surgery (SDC) | payer MEDICARE, BC ==
[~2018-04-21] VITALS: Ht 165.1 cm; Wt 54.1 kg
--- NOTE | ~2018-04-21 | OP ---
PATIENT NAME: RENATA RIVERA MEDICAL RECORD: [id number] :42 LOCATION:[facility] ADMISSION DATE: SURGEON: AMOS LAWS DO DATE OF OPERATION: 04/21/2018 PROCEDURE: Colonoscopy with polypectomy and biopsy. INDICATIONS FOR PROCEDURE: History of diverticular disease with recurrent episodes of diverticulitis and a family history positive for colon cancer in her brother and sister. The patient's last colonoscopy was on 03/05/2016. SCOPE: [employer] video pediatric colonoscope. MEDICATIONS: Propofol 450 mg IV per anesthesia. WITHDRAWAL TIME: 35 minutes. ESTIMATED BLOOD LOSS: Minimal. COMPLICATIONS: None. FINDINGS: Informed consent was given. The patient was made comfortable with the above medication. After reaching an adequate level of sedation by slow IV push, the patient was placed on her left side. A digital rectal examination was performed and was normal. The endoscope was then advanced under direct visualization through the rectum to the terminal ileum. The endoscope was slowly withdrawn and the mucosa was carefully examined. The prep quality was fair to good. On this examination, there were 6 separate polyps visualized. Two were located in the cecum. They were both benign-appearing and sessile. They ranged in size from 3-5 mm in diameter and were removed using hot forceps in 1 piece and completely retrieved. Two more polyps were located in the transverse colon. These were benign-appearing and sessile and ranged in size from 3-5 mm in diameter. They were removed using hot forceps in 1 piece and completely retrieved. The last 2 polyps were located in the sigmoid colon. They were benign appearing and sessile and ranged in size from 3-4 mm in diameter and were removed in 1 piece using hot forceps and completely retrieved. There was an area of interest in the cecum, which had a lacy vascular pattern, which stood out from the surrounding mucosa. Two cold forceps biopsies were taken to submit for histology to rule out any adenomatous tissue within this area. In the sigmoid colon, there was evidence of moderate to severe diverticulosis without evidence of diverticulitis. Retroflexion was performed in the rectum with some grade I internal hemorrhoids visualized. The endoscope was then withdrawn from the patient. The patient tolerated the procedure well and there were no complications. IMPRESSION: 1. Six polyps as described above, removed using hot forceps. 2. The area of interest in the cecum, which is likely benign tissue, but biopsies were taken to submit for histopathology. 3. Moderate to severe diverticulosis of the sigmoid colon. 4. Grade I internal hemorrhoids without bleeding. PLAN AND RECOMMENDATIONS: 1. Discharge home when recovery parameters are met. 2. Follow up biopsy specimen results. OPERATIVE REPORT [id number] RENATA RIVERA 3. High fiber diet. 4. Continue current medications. 5. Consider segmental resection of the sigmoid colon due to severe, recurrent diverticulitis. 6. Recall colonoscopy in 3 years for further surveillance of personal history of polyps. TRANSINT:[id number] Voice Confirmation ID: [id number] DOCUMENT ID: [id number] AMOS LAWS DO at 1255 CC: [id number] DICTATION DATE: 04/21/18 1033 BLACKTOP PAVER OPERATOR: 04/21/18 1206 [facility] 04/21/[id number] [place] [address]
[2018-04-21 08:15] LABS: HEMATOCRIT 39.9 % (36.0-48.0); HEMOGLOBIN 13.6 g/dL (12-16); MCH 30.6 pg (26.0-34.0); MCHC 34.1 g/dL (31.0-37.0); MCV 89.7 fL (80.0-100.0); MEAN PLATELET VOLUME 9.5 fL (7.4-10.4); RBC 4.45 10x6/uL (4.00-5.40); RDW 13.7 % (11.5-14.5); WBC 7.6 10x3/uL (4.8-10.8)
[2018-04-21 09:12] VITALS: BP 118/55; Ht 165.1 cm; Wt 54.1 kg
== END 2018-04-21 11:35 | disposition home or self-care (01) ==
LOC: D.OPS 07:47
PROVIDERS: Anesthesiology
DX: K57.30 Diverticulosis of large intestine without perforation or abscess without bleeding (principal); K63.5 Polyp of colon; K64.0 First degree hemorrhoids

== ENCOUNTER → 2018-06-30 10:48 | Outpatient (CLI) | payer MEDICARE, BC ==
[2018-04-21 09:12] VITALS: BMI 19.8
== END | disposition home or self-care (01) ==
LOC: D.CT 10:48
DX: R10.30 Lower abdominal pain, unspecified (principal); Z87.19 Personal history of other diseases of the digestive system

== ENCOUNTER 2018-07-01 13:38 | Inpatient (IN) | payer MEDICARE, BC ==
[~2018-07-01] VITALS: Ht 165.1 cm; Wt 54.5 kg
--- NOTE | ~2018-07-01 | MORECARE ---
CASE MANAGEMENT DISCHARGE SUMMARY PATIENT: RENATA RIVERA UNIT: [id number] ADM DATE: 07/01/18 AGE: 78 : 41 SEX: F ROOM/BED: D.2703 AUTHOR: BHASKAR,KILLIAN PHYSICIAN: REFERRING PHYSICIAN: AMOS LAWS DO DATE OF SERVICE: 07/03/18 Discharge Plan Patient Name: RENATA RIVERA Facility: [facility]:[place] : 1940 Planned Disposition: Home Anticipated Discharge Date: 07/03/18 Discharge Date: Expected LOS: 2 Initial Reviewer: [email or web address] Initial Review Date: 07/03/2018 Generated: 07/03/18 12:03 pm Comments DCP- Discharge Planning Updated by [id number]: Biju Allison on 07/03/18 10:[address] Patient Name: RENATA RIVERA Admission Status: Urgent Accout number: [id number] Admission Date: 07-01-2018 : 1940 Admission Diagnosis: Attending: AMOS LAWS Current LOS: 2 Anticipated DC Date: 07-03-2018 Planned Disposition: Home Primary Insurance: MEDICARE A & B Discharge Planning Comments: CM MET WITH PT AND SPOUSE IN ROOM TO DISCUSS DISCHARGE PLANNING AND NEEDS. RENATA RIVERA provided verbal consent to discuss current and ongoing needs with/in the presence of: SPOUSE, JEFFERSON. PT REPORTS LIVING AT HOME INDEPENDENTLY WITH SPOUSE. PT HAS NO MEDICAL EQUIPMENT AND NO OUTSIDE SERVICES ASSISTING IN THE HOME. CM DISCUSSED AVAILABILITY OF HOME HEALTH, REHAB SERVICES AND MEDICAL EQUIPMENT. PT DENIES DISCHARGE NEEDS, REPORTS HER SPOUSE IS HERE TO PICK HER UP TODAY FOR DISCHARGE HOME. IMPORTANT MESSAGE FROM MEDICARE PROVIDED AND EXPLAINED. Longwall Foreman: Biju Allison DCPIA - Discharge Planning Initial Assessment Updated by [id number]: Biju Allison on 07/03/18 11:00 am * Is the patient Alert and Oriented? Yes * How many steps to enter\exit or inside your home? * PCP DR. RYAN * Pharmacy [facility] IN [place] * Preadmission Environment Home with Family * ADLs Independent * Equipment None * Other Equipment NO MEDICAL EQUIPMENT PROVIDER PREFERENCE * List name and contact numbers for known caregivers / representatives who currently or will assist patient after discharge: JEFFERSON RIVERA, SPOUSE, * Verbal permission to speak to the caregivers and representatives has been obtained from the patient. Yes * Community resources currently utilized None * Please name any agencies selected above. NONE * Additional services required to return to the preadmission environment? No * Can the patient safely return to the preadmission environment? Yes * Has this patient been hospitalized within the prior 30 days at any hospital? No Coverage Notice Reviewer: [email or web address] Nicki Allison Notice Issued Date-Time: 07/03/2018 10:50 Notice Type: IM Discharge Notice Notice Delivered To: Patient Relationship to Patient: Senior Web Applications Developer Name: Delivery Method: HAND - Hand Delivered Julia Days: Prior Verbal Notification: Recipient Understood Notice: Yes Recipient Signature: Yes Med Rec Note Co-signed by Attending: Coverage Notice Comment: Patient Name: RENATA RIVERA Page [id number] at 1103 All edits/amendments must be made on the electronic document DICTATION DATE: 07/03/181102 WEDDING CAKE DESIGNER: BREANNE 07/03/18 110 RPT#: [id number] DC DATE: STATUS: ADM IN [facility] [address] [place] [address] END OF REPORT
[2018-07-01] MEDS ORDERED: FLECAINIDE ACE100 MG PO (14:12)
[2018-07-01 15:45] VITALS: BP 105/67
[2018-07-01 16:00] VITALS: BP 105/65
[2018-07-01 21:48] VITALS: BP 102/51
[2018-07-02 00:02] VITALS: BP 120/55
[2018-07-02 04:50] LABS: BASOPHILS 0.2 % (0-2); EOSINOPHILS 1.2 % (0-7); HEMATOCRIT 38.5 % (36.0-48.0); HEMOGLOBIN 12.8 g/dL (12-16); IMMATURE GRANULOCYTES 0.2 % (0-5); LYMPHOCYTES 23.5 % (15-50); MCH 30.3 pg (26.0-34.0); MCHC 33.2 g/dL (31.0-37.0); MCV 91.2 fL (80.0-100.0); MEAN PLATELET VOLUME 9.8 fL (7.4-10.4); MONOCYTES 9.9 % (2-11); PLATELET COUNT 194 10x3/uL (130-400); RBC 4.22 10x6/uL (4.00-5.40); RDW 13.2 % (11.5-14.5); WBC 10.6 10x3/uL (4.8-10.8)
[2018-07-02 05:16] LABS: ALBUMIN 2.8 g/dL (3.4-5.0); ANION GAP 14.3 mmol/L (8-16); BILIRUBIN - TOTAL 0.55 mg/dL (0.2-1.3); CALCIUM 8.7 mg/dL (8.5-10.1); CREATININE - SERUM 1.1 mg/dL (0.6-1.3); POTASSIUM - SERUM 4.3 mmol/L (3.5-5.1); PROTEIN - SERUM 6.3 g/dL (6.4-8.2)
[2018-07-02 05:25] VITALS: BP 104/51
[2018-07-02 08:17] VITALS: BP 109/58
[2018-07-02 11:55] VITALS: BP 98/55
[2018-07-02 12:41] VITALS: Ht 165.1 cm; Wt 54.5 kg
[2018-07-02 16:53] VITALS: BP 112/65
[2018-07-02 19:29] LABS: APPEARANCE CLEAR (CLEAR); BILIRUBIN NEGATIVE (NEGATIVE); COLOR YELLOW (YELLOW); GLUCOSE NEGATIVE (NEGATIVE); KETONE NEGATIVE (NEGATIVE); NITRITE NEGATIVE (NEGATIVE); PROTEIN NEGATIVE (NEGATIVE); SPECIFIC GRAVITY 1.005 (1.005-1.020); UROBILINOGEN NORMAL (NORMAL)
[2018-07-02 19:34] LABS: WHITE CELLS - URINE 0-5 /hpf (0-5)
[2018-07-02 19:35] LABS: BACTERIA FEW /hpf (NONE SEEN); RED CELLS - URINE 0-5 /hpf (0-5)
[2018-07-02 21:31] VITALS: BP 117/60
[2018-07-03 01:11] VITALS: BP 127/67
[2018-07-03 07:25] VITALS: BP 107/60
[2018-07-03 09:24] VITALS: BP 100/55
== END 2018-07-03 11:31 | disposition home or self-care (01) | DRG 392 ==
LOC: D.M2 13:38
PROVIDERS: Internal Medicine Gastroenterology
DX: K57.92 Diverticulitis of intestine, part unspecified, without perforation or abscess without bleeding (principal); Z95.0 Presence of cardiac pacemaker; K59.00 Constipation, unspecified; R53.83 Other fatigue

== ENCOUNTER 2018-07-16 08:35 | Outpatient (CLI) | payer MEDICARE, BC ==
[~2018-07-16] VITALS: Ht 165.1 cm; Wt 54.5 kg
--- NOTE | ~2018-07-16 | OP ---
PATIENT NAME: RENATA RIVERA MEDICAL RECORD: [id number] :42 LOCATION:D.CAT ADMISSION DATE: SURGEON: JASPREET HALL MD DATE OF OPERATION: 07/16/2018 PROCEDURES: 1. Intravascular ultrasound of the LAD. 2. Intravascular ultrasound of left main. 3. Left heart catheterization. 4. Selective coronary angiography. 5. Left ventriculogram. INDICATION: Angina and coronary artery disease. PROCEDURE IN DETAIL: After informed consent was obtained and after detailed description of risks, benefits as well as alternative therapies, the patient elected to proceed with angiogram and angioplasty. The right radial area was prepped and draped in normal sterile fashion. Right radial artery was cannulated via modified Seldinger technique with placement of 6-Indonesian sheath. All catheters exchanged through this sheath. FINDINGS: The left ventriculogram was performed in standard 30-degree BRIGGS view, reveals good cardiac wall motion throughout all segments. Overall ejection fraction estimated at 60%. SELECTIVE CORONARY ANGIOGRAPHY: 1. The left main has questionable stenosis distally; however, intravascular ultrasound reveals this is no significant stenosis. Left anterior descending has previously placed stent. Intravascular ultrasound revealed that this is widely patent with no significant restenosis. No disease elsewise at the LAD or its branches. 2. Left circumflex has mild irregularities, but no flow-limiting stenosis. 3. Right coronary has mild irregularities, but no flow-limiting stenosis. OVERALL IMPRESSION: Wide patency of the previously placed stent with no disease elsewise. Continue medical management of the coronary artery disease and cardiac risk factors. TRANSINT:[id number] Voice Confirmation ID: [id number] DOCUMENT ID: [id number] JASPREET HALL MD at 1816 CC: [id number] DICTATION DATE: 07/16/18 1110 ELECTROLOGIST: 07/16/18 1122 DEP CLI 07/16/18 [id number] [id number]
--- NOTE | ~2018-07-16 | HEMODYNAMI ---
PATIENT:RENATA RIVERA MEDICAL RECORD: [id number] : 42 LOCATION:[facility]ANA ADMISSION DATE: 07/16/18 Generatedon:07/16/201811:11 Patient name: RENATA RIVERA Patient #: [id number] SSN: DO B: 1940 Date of study: 07/16/2018 Page: Of Hemodynamic Procedure Report Patient Data Patient Demographics Procedure consent was obtained First Name: RENATA Gender: Female Last Name: MIGUEL : 1940 [facility] Initial: YUVAL Age: 78 year(s) Patient #: [id number] Race: Additional ID: [id number] Contact details Address: [address] [place] [address] RO[address] State: [place] City: [place] Zip code: [address] Past Medical History Allergies Allergen Reaction Date Comments Reported Other allergy 02/16/2015 CIPRO, FLAGYL Other allergy 07/16/2018 CIPRO, FLAGYL, PLAVIX Admission Admission Data Admission Date: 07/16/2018 Admission Time: 8:35 Height (in.): 65 BSA: 1.61 (m2) Height (cm.): 165.1 BMI: 20.47 (kg/m2) Weight (lbs.): 123 Weight (kg.): 55.79 Lab Results Lab Result Date: 07/16/2018 Lab Result Time: 0:00 Biochemistry Name Units Result Min Max BUN mg/dl 17 --(---*)-- 7 18 Creatinine mg/dl 1.1 --(--*-)-- 0.6 1.3 CBC Name Units Result Min Max Hemoglobin g/dl 14.6 --(-*--)-- 13.5 17.5 Procedure Procedure Types Cath Procedure Diagnostic Procedure [facility] w/Coronaries FFR/IVUS Intra-Coronary IVUS Initial Intra-Coronary IVUS Additional Procedure Description Procedure Date Procedure Date: 07/16/2018 Procedure Start Time: 10:58 Procedure End Time: 11:09 Procedure Staff Name Function Dago Medina MD Performing Physician Charisma Booker RT Monitor José Miguel Soto RT Scrub Grazyna Smith RN Nurse Procedure Data Cath Procedure Fluoroscopy Diagnostic fluoroscopy Total fluoroscopy Time: 2 time: 2 min min Diagnostic fluoroscopy Total fluoroscopy dose: 198 dose: 198 mGy mGy Contrast Material Contrast Material Type Amount (ml) Isovue 300 62 Entry Location Entry Primary Successful Side Size Upsize Upsize Entry Closure Villeda ccessful Closure Location (Fr) 1 (Fr) 2 (Fr) Remarks Device Remarks Radial Right 6 Fr Mechanical artery Short Compression Estimated blood loss: 5 ml Diagnostic catheters Device Type Used For End Catheter Placement DIAGNOSTIC [place] 110cm 5 Procedure Fr catheter ([id number]) Procedure Complications No complications Procedure Medications Medication Administration Route Dosage 0.9% NaCl I.V. 100 ml/hr Oxygen etCO2 Nasal cannula 2 l/min Lidocaine 2% added to field 20 Heparin Flush Bag added to field 2 bags (1000units/500ml NS) Radial Cocktail added to field 1 syringe (Verapomil 2mg/Nitro 400mcg/Heparin 1500units) Versed I.V. 2 mg Fentanyl I.V. 100 mcg Hemodynamics Rest BSA: 1.61 (m2) O2 Consumption: Estimated: 145.49 (ml/min) O2 Consumption indexed : Estimated:90.37 (ml/min/m) Heart Rate: 70 (bpm) Snapshots Pre Cath Intra NCS Post Cath Vital Signs Time Heart Resp SPO2 etCO2 NIBP (mmHg) Rhythm Pain Sedation Rate (ipm) (%) (mmHg) Status Level (bpm) 10:49:42 76 11 99 29.8 132/69(111) NSR 0 (11) 10(A) , No pain 10:53:54 69 14 99 33.6 132/76(107) NSR 0 (11) 10(A) , No pain 10:58:08 69 13 100 30.6 130/67(106) NSR 0 (11) 10(A) , No pain 11:02:26 69 12 100 29.1 113/57(82) NSR 0 (11) 10(A) , No pain 11:06:36 71 14 98 30 111/58(78) NSR 0 (11) 10(A) , No pain Medications Time Medication Route Dose Verified Delivered Reason Notes E ffectiveness by by 10:42:03 0.9% NaCl I.V. 100 Dago Gordilloa used for ml/hr Carol Smith prorate clerk 10:42:10 Oxygen etCO2 2 l/min Dago Grazyna used for Nasal Carol Smith procedure cannula RN 10:42:16 Lidocaine 2% added 20ml Dago Loza for local to vial Carol Medina MD anesthetic field 10:42:22 Heparin Flush added 2 bags Dago Dago used for Bag to Carol Medina MD procedure (1000units/500ml field NS) 10:52:37 Radial Cocktail added 1 Dago Dago used for (Verapomil to syringe Carol Medina MD procedure 2mg/Nitro field 400mcg/Heparin 1500units) 10:57:14 Versed I.V. 2 mg Dago Grazyna for Carol Smith sedation RN 10:57:32 Fentanyl I.V. 100 mcg Dago Arnettyla for Carol Smith sedation avionics systems repairer Log Time Note 10:29:45 Grazyna Smith RN sent for patient. Start room use. 10:29:46 Time tracking: Regular hours (M-F 7:00 - 5:00) 10:29:50 Plan of Care:Hemodynamics will remain stable., Cardiac rhythm will remain stable., Comfort level will be maintained., Respiratory function will remain adequate., Patient/ family verbilizes understanding of procedure., Procedure tolerated without complication., Recovers from procedure without complications.. 10:29:52 Diagnostic Cath status Elective 10:30:01 Patient Height : 65 inches 10:30:07 Patient Weight : 123 lbs 10:31:59 H&P Date Dictated: 06/19/2018 Within 30 days and on chart., H&P Addendum completed by physician on day of procedure. (MUST COMPLETE FOR ALL OUTPATIENTS). 10:32:30 Patient allergic to Other allergyCIPRO, FLAGYL, PLAVIX 10:33:50 Lab Result : BUN 17 mg/dl 10:33:50 Lab Result : Hemoglobin 14.6 g/dl 10:33:50 Lab Result : Creatinine 1.1 mg/dl 10:39:58 Patient received from Pre/Post Procedure Room to CCL 1 Alert and oriented. Tansferred to table in Supine position. 10:40:00 Warm blankets applied, and tawanda hugger turned on for patient comfort. 10:40:01 Correct patient and procedure confirmed by team. 10:40:02 Signed procedure consent form obtained from patient. 10:40:04 ECG and BP/O2 sat monitors applied to patient. 10:40:05 Pre-procedure instructions explained to patient. 10:40:06 Pre-op teaching completed and patient verbalized understanding. 10:40:07 Family in waiting room. 10:40:08 Patient NPO since Midnight. 10:42:03 0.9% NaCl 100 ml/hr I.V. was administered by Grazyna Smith RN; used for procedure; 10:42:10 Oxygen 2 l/min etCO2 Nasal cannula was administered by Grazyna Smith RN; used for procedure; 10:42:16 Lidocaine 2% 20ml vial added to field was administered by Dago Medina MD; for local anesthetic; 10:42:22 Heparin Flush Bag (1000units/500ml NS) 2 bags added to field was administered by Dago Medina MD; used for procedure; 10:48:24 Vital chart was started 10:52:37 Radial Cocktail (Verapomil 2mg/Nitro 400mcg/Heparin 1500units) 1 syringe added to field was administered by Dago Medina MD; used for procedure; 10:52:54 Baseline sample Acquired. 10:52:57 Rhythm: sinus rhythm 10:52:58 Full Disclosure recording started 10:53:02 Is the patient allergic to Iodine/contrast media? No. 10:53:03 Is patient on blood thinner?No 10:53:04 Patient diabetic? No. 10:53:11 Previous problem with sedation/anesthesia? Yes EASILY SEDATED 10:53:13 Snore? No 10:53:14 Sleep apnea? No 10:53:14 Deviated septum? No 10:53:19 Opens mouth fully? Yes 10:53:20 Sticks out tongue? Yes 10:53:21 Airway obstruction? No ? 10:53:23 Dentures? No ? 10:53:25 Modified Gorge's test Ulnar < 7 seconds 10:53:33 Patient pain scale 0/10 ?. 10:53:36 IV patent on arrival in left hand with 0.9% NaCl at O. 10:53:40 Lab results completed and on chart. 10:53:43 Right Radial & Right Groin area was prepped with chlora-prep and draped in sterile fashion 10:53:43 Alarms reviewed by R. N. 10:53:44 Sharps counted by scrub and verified by R.N. 10:53:57 Use device set Radial Dx or PCI 10:53:59 ACIST Syringe (69454) opened to sterile field. 10:54:01 Bag Decanter (2002S) opened to sterile field. 10:54:02 ACIST Hand Control (06815) opened to sterile field. 10:54:03 ACIST Manifold (20665) opened to sterile field. 10:54:04 Tegaderm 4 x 4 (1626W) opened to sterile field. 10:54:10 Medline Cath Pack ([id number]) opened to sterile field. 10:54:11 DIAGNOSTIC WIRE .035 260cm J wire (686729) opened to sterile field. 10:54:14 MBrace Wrist Support ([id number]) opened to sterile field. 10:54:52 SHEATH 6Fr Prelude Radial ([id number]) opened to sterile field. 10:56:16 --------ALL STOP TIME OUT------ 10:56:17 Final Timeout: patient, procedure, and site verified with staff and physician. All members of the team are in agreement. 10:56:18 Right Radial & Right Groin site verified by team. 10:56:20 Physical assessment completed. ASA score P 2 - A patient with mild systemic disease as per Dago Medina MD. 10:56:23 Sedation plan: IV Moderate Sedation Medication:Versed, Fentanyl 10:57:14 Versed 2 mg I.V. was administered by Grazyna Smith RN; for sedation; 10:57:32 Fentanyl 100 mcg I.V. was administered by Grazyna Smith RN; for sedation; 10:58:26 Procedure started. 10:58:35 Zero performed for pressure channel P1 10:58:59 Local anesthetic to right radial artery with Lidocaine 2% by Dago Medina MD.INITIAL ACCESS ONLY 11:00:02 A 6 Fr Short sheath was inserted into the Right Radial artery 11:00:18 A DIAGNOSTIC [place] 110cm 5 Fr catheter (132110) was advanced over the wire and used for Procedure. 11:01:23 LV gram done using BRIGGS 11:01:28 Injector settings: Ml/sec: 5, Volume: 15, 11:02:04 EF : 55 % 11:02:53 LCA angiography performed. 11:03:34 RCA angiography performed. 11:03:35 Catheter exchanged over wire. 11:03:41 INFLATOR Merit [place] (BP7352) opened to sterile field. 11:03:53 CHOICE PT Extra Support 182cm wire ([id number]) opened to sterile field. 11:03:53 [place] Ambler Eag[place] IVUS Catheter (55599D) opened to sterile field. 11:04:23 GUIDE 6FR XBLAD 3.5 catheter ([id number]) opened to sterile field. 11:05:23 6 Fr XBLAD 3.5 guide catheter was inserted over the wire 11:05:53 CHOICE ES 182 wire advanced. 11:05:54 Wire advanced across lesion. 11:06:54 IVUS catheter advanced over wire. 11:06:56 IVUS pass to LMCA lesion performed. 11:07:02 IVUS pass to LAD lesion performed. 11:07:11 IVUS catheter removed over wire. 11:07:25 Wire removed. 11:07:26 Guide catheter removed. 11:07:28 TR BAND Standard ([id number]) opened to sterile field. 11:08:08 Procedure ended.(Physican Out) 11:08:12 Sheath removed intact; hemostasis achieved with Mechanical Compression to the Right Radial artery. 11:08:24 Fluoroscopy time 02.00 minutes. 11:08:27 Flurop Dose total: 198 11:08:27 Fluoroscopy dose: 198 mGy 11:08:30 Contrast amount:Isovue 300 62ml. 11:08:32 Sharps counted by scrub and verified by R.N. 11:08:34 TR band inflated with 11cc of air. 11:08:37 Post-procedure physical assessment completed. ASA score P 2 - A patient with mild systemic disease as per Dago Medina MD. 11:08:40 Post procedure rhythm: sinus rhythm 11:08:42 Estimated blood loss: 5 ml 11:08:44 Post procedure instruction explained to patient.Patient verbalizes understanding. 11:08:44 Patient needs reinforcement of post procedure teaching. 11:09:08 Procedure type changed to Cath procedure, Diagnostic procedure, LHC, LHC w/Coronaries, FFR/IVUS, Intra-Coronary IVUS Initial, Intra-Coronary IVUS Additional 11:09:34 Procedure and supply charges have been captured, reviewed, submitted and are correct. 11:09:36 Procedure Complication : No complications 11:09:38 Vital chart was stopped 11:09:39 See physician's report for complete and final results. 11:09:42 Report given to Pre/Post Procedure Room. 11:09:44 Patient transfered to Pre/Post Procedure Room with Bed. 11:09:50 Procedure ended. 11:09:50 Full Disclosure recording stopped 11:09:56 End room use (Document Last) Device Usage Item Name Manufacture Quantity Catalog Number Hospital Part Current M inimal Lot# / Charge Number Stock Stock Serial# Code ACIST Syringe Acist 1 18214 699444 296103 098014 2 0 (34533) Medical Systems R2 Semicon[employer] Bag Decanter Microtek 1 2001S 995419 55464 610032 5 (2001S) Medical Inc. ACIST Hand Acist 1 96290 511585 514071 783985 5 Control (98261) Medical Systems [employer] ACIST Manifold Acist 1 74420 478619 482657 719294 5 (53423) Medical Systems [employer]ductor Tegaderm 4 x 4 3M 1 1626W 030894 409564 275828 5 (1626W) Medline Cath Medline 1 [id number] 387338 04856 266541 5 Pack ([id number]) DIAGNOSTIC WIRE St Jeff 1 910320 336561 041672 731770 3 0 .035 260cm J wire (886033) MBrace Wrist Advanced 1 140-0250-00 584206 44948 466176 5 Support Vascular ([id number]) Dynamics SHEATH 6Fr Merit 1 [id number] 756489 524705 658455 5 Prelude Radial Medical ([id number]) DIAGNOSTIC Terumo 1 40-2083 648951 070965 258212 5 [place] 110cm 5 Fr catheter (594937) INFLATOR Merit Merit 1 FC0755 973488 551498 810152 1 5 [place] (TZ8295) CHOICE PT Extra [place] 1 [id number] 957979 090154 958134 5 Support 182cm Scientific wire ([id number]) [place] 1 67643Y 735582 903576 676299 8 [place] Eagleye IVUS Catheter (59199N) GUIDE 6FR XBLAD Cardinal 1 [id number] 028594 787275 244931 1 0 3.5 catheter Health (29707824) TR BAND Terumo 1 [id number] 400376 009372 696468 4 0 Standard ([id number]) Signature Audit [place] Stage Time Signature Unsigned Intra-Procedure 07/16/2018 Charisma Booker 11:11:14 AM RT(R) Signatures Monitor : Charisma Booker Signature : RT Date : Time : [place] [address] [place] [address]
[2018-07-16 09:18] VITALS: BP 103/52; Ht 165.1 cm; Wt 54.5 kg
[2018-07-16 09:52] LABS: BASOPHILS 0.3 % (0-2); HEMATOCRIT 42.6 % (36.0-48.0); HEMOGLOBIN 14.6 g/dL (12-16); IMMATURE GRANULOCYTES 0.1 % (0-5); LYMPHOCYTES 29.1 % (15-50); MCH 30.6 pg (26.0-34.0); MCHC 34.3 g/dL (31.0-37.0); MCV 89.3 fL (80.0-100.0); MEAN PLATELET VOLUME 9.7 fL (7.4-10.4); MONOCYTES 6.1 % (2-11); NEUTROPHILS 63.4 % (40-80); RBC 4.77 10x6/uL (4.00-5.40); RDW 13.2 % (11.5-14.5); WBC 8.8 10x3/uL (4.8-10.8)
[2018-07-16 09:53] LABS: ANION GAP 12.3 mmol/L (8-16); CALCIUM 9.4 mg/dL (8.5-10.1); CARBON DIOXIDE 27.7 mmol/L (21.0-32.0); CREATININE - SERUM 1.1 mg/dL (0.6-1.3); PLATELET COUNT 265 10x3/uL (130-400)
== END 2018-07-16 13:25 | disposition home or self-care (01) ==
LOC: D.CATH 08:35
PROVIDERS: Internal Medicine Interventional Cardiology
DX: I25.119 Atherosclerotic heart disease of native coronary artery with unspecified angina pectoris (principal); Z01.812 Encounter for preprocedural laboratory examination

== ENCOUNTER → 2018-09-26 13:53 | Outpatient (CLI) | payer MEDICARE, BC ==
[~2018-09-26 13:53] MED LIST changes: +VANCOCIN HCL250 MG PO; +[UNRECOGNIZED DRUG - REMARK]; +[UNRECOGNIZED DRUG - REMARK]
== END | disposition home or self-care (01) ==
LOC: D.CT 13:53
DX: R68.84 Jaw pain (principal)

== ENCOUNTER 2018-09-30 13:24 | Emergency (ER) | payer MEDICARE, BC ==
[~2018-09-30] VITALS: Ht 165.1 cm; Wt 54.1 kg
[~2018-09-30 13:24] MED LIST changes: -VANCOCIN HCL250 MG PO; -[UNRECOGNIZED DRUG - REMARK]; -[UNRECOGNIZED DRUG - REMARK]
[2018-09-30 13:31] VITALS: Ht 165.1 cm; Wt 54.1 kg
[2018-09-30] MEDS ORDERED: AUGMENTIN 875-11 TAB PO (13:33)
[2018-09-30] MEDS ORDERED: [UNRECOGNIZED DRUG - REMARK] (13:34)
[2018-09-30] MEDS ORDERED: [UNRECOGNIZED DRUG - REMARK] (13:34)
[2018-09-30 14:34] LABS: BASOPHILS 0.1 % (0-2); EOSINOPHILS 0 % (0-7); HEMATOCRIT 44.4 % (36.0-48.0); HEMOGLOBIN 14.9 g/dL (12-16); IMMATURE GRANULOCYTES 0.2 % (0-5); MCHC 33.6 g/dL (31.0-37.0); MCV 89.3 fL (80.0-100.0); MEAN PLATELET VOLUME 9.8 fL (7.4-10.4); MONOCYTES 3.7 % (2-11); RBC 4.97 10x6/uL (4.00-5.40); RDW 13.5 % (11.5-14.5); WBC 18.2 10x3/uL (4.8-10.8)
[2018-09-30 14:47] LABS: PLATELET COUNT 183 10x3/uL (130-400)
[2018-09-30 15:06] LABS: ALBUMIN 3.6 g/dL (3.4-5.0); ALKALINE PHOSPHATASE 67 U/L (46-116); ALT (SGPT) 21 U/L (10-68); BILIRUBIN - TOTAL 0.74 mg/dL (0.2-1.3); CALC OSMOLALITY 278 mosm/kg (275-300); CALCIUM 9.3 mg/dL (8.5-10.1); CARBON DIOXIDE 27.2 mmol/L (21.0-32.0); CHLORIDE - SERUM 101 mmol/L (98-107); CREATININE - SERUM 1.1 mg/dL (0.6-1.3); POTASSIUM - SERUM 4.3 mmol/L (3.5-5.1); SODIUM 137 mmol/L (136-145); UREA NITROGEN 19 mg/dL (7-18); eGFR NON AFRICAN AMERICAN 51 mL/min (90-120)
[2018-09-30 15:07] LABS: GLUCOSE 152 mg/dL (74-106)
[2018-09-30 15:10] LABS: AMYLASE - SERUM 70 U/L (25-115); LIPASE 162 U/L (73-393); TROPONIN-I < 0.017 ng/mL (0.000-0.060)
[2018-09-30] MEDS ORDERED: VANCOCIN HCL250 MG PO (16:23)
[2018-09-30 16:30] LABS: APPEARANCE CLEAR (CLEAR); BILIRUBIN NEGATIVE (NEGATIVE); COLOR YELLOW (YELLOW); GLUCOSE NEGATIVE (NEGATIVE); KETONE NEGATIVE (NEGATIVE); NITRITE NEGATIVE (NEGATIVE); PROTEIN NEGATIVE (NEGATIVE); SPECIFIC GRAVITY 1.015 (1.005-1.020); UROBILINOGEN NORMAL (NORMAL)
[2018-09-30 16:31] LABS: BACTERIA FEW /hpf (NONE SEEN); EPITHELIAL CELLS 0-5 /hpf (0-5); RED CELLS - URINE OCC /hpf (0-5); WHITE CELLS - URINE OCC /hpf (0-5)
[2018-09-30 17:00] VITALS: BP 116/71
== END 2018-09-30 17:00 | disposition home or self-care (01) ==
LOC: D.ER 13:24
PROVIDERS: Emergency Medicine
DX: R10.32 Left lower quadrant pain (principal); Z87.19 Personal history of other diseases of the digestive system; R11.2 Nausea with vomiting, unspecified; R19.7 Diarrhea, unspecified

== ENCOUNTER 2018-11-21 11:21 | Inpatient (IN) | payer MEDICARE, BC ==
[~2018-11-21] VITALS: Ht 165.1 cm; Wt 53.5 kg
[~2018-11-21 11:21] MED LIST changes: +VANCOCIN HCL250 MG PO; +[UNRECOGNIZED DRUG - REMARK]; +[UNRECOGNIZED DRUG - REMARK]
[2018-11-21] MEDS ORDERED: [UNRECOGNIZED DRUG - OTHER] (11:50)
[2018-11-21] MEDS ORDERED: [UNRECOGNIZED DRUG - REMARK] (11:52)
[2018-11-21] MEDS ORDERED: FLECAINIDE ACET50 MG PO (11:52)
[2018-11-21 12:55] LABS: APPEARANCE CLEAR (CLEAR); BILIRUBIN NEGATIVE (NEGATIVE); COLOR YELLOW (YELLOW); GLUCOSE NEGATIVE (NEGATIVE); KETONE NEGATIVE (NEGATIVE); NITRITE NEGATIVE (NEGATIVE); PROTEIN NEGATIVE (NEGATIVE); SPECIFIC GRAVITY 1.015 (1.005-1.020); UROBILINOGEN NORMAL (NORMAL)
[2018-11-21 12:59] LABS: BASOPHILS 0.3 % (0-2); EOSINOPHILS 0.7 % (0-7); HEMATOCRIT 40.4 % (36.0-48.0); IMMATURE GRANULOCYTES 0.3 % (0-5); LYMPHOCYTES 38.5 % (15-50); MCH 30.2 pg (26.0-34.0); MCHC 34.7 g/dL (31.0-37.0); MCV 87.3 fL (80.0-100.0); MEAN PLATELET VOLUME 9.8 fL (7.4-10.4); MONOCYTES 7.1 % (2-11); NEUTROPHILS 53.1 % (40-80); RBC 4.63 10x6/uL (4.00-5.40); RDW 13.4 % (11.5-14.5); WBC 6.8 10x3/uL (4.8-10.8)
[2018-11-21 13:02] LABS: PLATELET COUNT 224 10x3/uL (130-400)
[2018-11-21 13:05] LABS: ALBUMIN 3.5 g/dL (3.4-5.0); ANION GAP 17.8 mmol/L (8-16); BILIRUBIN - TOTAL 0.45 mg/dL (0.2-1.3); CALCIUM 9.4 mg/dL (8.5-10.1); CARBON DIOXIDE 24.4 mmol/L (21.0-32.0); CREATININE - SERUM 1.1 mg/dL (0.6-1.3); POTASSIUM - SERUM 4.2 mmol/L (3.5-5.1); PROTEIN - SERUM 7.4 g/dL (6.4-8.2)
--- NOTE | 2018-11-21 15:24 | NUR ---
RECIEVED REPORT. PT WILL ARIVE SHORTLY
--- NOTE | 2018-11-21 15:53 | NUR ---
PT ARRIVED IN ROOM. A/OX4 UP AD VANDANA
[2018-11-21 16:11] VITALS: BP 132/63
[2018-11-21 16:42] VITALS: BMI 19.6
--- NOTE | 2018-11-21 19:32 | NUR ---
EVENING ROUNDS COMPLETED. REPORT RECEIVED. PT SITTING UP IN BED WITH EYES OPEN, RR EVEN AND UNLABORED. CURRENTLY SPEAKING TO DR RYAN. INTRODUCED SELF TO PT. PT DENIES FURTHER NEEDS AT THIS TIME. NO S/S OF DISTRESS. CALL LIGHT IN REACH. WILL CTM.
[2018-11-21 20:00] VITALS: BP 122/68
[2018-11-21 23:00] VITALS: BP 116/62
--- NOTE | 2018-11-22 02:22 | NUR ---
I have reviewed this patient and I concur with the Shift Assessment completed by the Licensed Practical Nurse today this shift.
[2018-11-22 04:30] VITALS: BP 118/67
[2018-11-22 05:59] LABS: ALBUMIN 2.8 g/dL (3.4-5.0); ANION GAP 14.4 mmol/L (8-16); BILIRUBIN - TOTAL 0.36 mg/dL (0.2-1.3); CALCIUM 8.4 mg/dL (8.5-10.1); CARBON DIOXIDE 23.7 mmol/L (21.0-32.0); CREATININE - SERUM 1.1 mg/dL (0.6-1.3); POTASSIUM - SERUM 4.1 mmol/L (3.5-5.1); PROTEIN - SERUM 5.9 g/dL (6.4-8.2)
[2018-11-22 06:45] LABS: BASOPHILS 0.5 % (0-2); EOSINOPHILS 2.6 % (0-7); HEMATOCRIT 37.4 % (36.0-48.0); HEMOGLOBIN 12.6 g/dL (12-16); IMMATURE GRANULOCYTES 0.2 % (0-5); LYMPHOCYTES 42.2 % (15-50); MCH 29.5 pg (26.0-34.0); MCHC 33.7 g/dL (31.0-37.0); MCV 87.6 fL (80.0-100.0); MONOCYTES 10.2 % (2-11); NEUTROPHILS 44.3 % (40-80); PLATELET COUNT 197 10x3/uL (130-400); RBC 4.27 10x6/uL (4.00-5.40); RDW 13.4 % (11.5-14.5); WBC 5.8 10x3/uL (4.8-10.8)
--- NOTE | 2018-11-22 07:17 | NUR ---
PT COMING OUT FO THE BATHROOM WHEN I ENTERED. PLESANT MOOD. NO QUESTIONS/CONCERNS/COMMENTS AT THIS TIME. CL IN REACH. SRX2. PT REQUESTS DOOR LEFT OPEN A CRACK.
[2018-11-22 09:20] VITALS: Ht 165.1 cm; Wt 53.5 kg
[2018-11-22 09:30] VITALS: BP 93/64
[2018-11-22 12:26] VITALS: BP 97/56
[2018-11-22 17:16] VITALS: BP 106/60
--- NOTE | 2018-11-22 17:41 | NUR ---
PT LYING IN BED, EATING SUPPER. STATES SHE HAD A BM BUT IT WAS RUNNY. ATE WELL, TOLERATED FOOD WELL. NO C/O STOMACH PAIN. CL IN REACH. SRX2.
--- NOTE | 2018-11-22 17:46 | NUR ---
PT JUST FINISHED EATING DINNER, DENIES [place] NEEDS AT THIS TIME. CALL LIGHT IN REACH, AGREE WITH LPNS ASSESSMENT.
--- NOTE | 2018-11-22 19:34 | NUR ---
EVENING ROUNDS COMPLETED. REPORT RECEIVED. PT SITTING UP IN BED WITH EYES OPEN, RR EVEN AND UNLABORED. BED IN LOW POSITION. NO S/S OF DISTRESS NOTED. LEFT FOREARM PIV INFUSING NORMAL SALINE ORDERED. INTRODUCED SELF TO PT. PT DENIES FURTHER NEEDS AT THIS TIME. CALL LIGHT IN REACH. WILL CTM
[2018-11-22 19:55] VITALS: BP 114/65
[2018-11-22 23:55] VITALS: BP 132/77
--- NOTE | 2018-11-23 00:38 | NUR ---
I have reviewed this patient and I concur with the Shift Assessment completed by the Licensed Practical Nurse today this shift.
--- NOTE | 2018-11-23 04:35 | NUR ---
PT LYING IN BED WITH EYES CLOSED, RR EVEN AND UNLABORED. BED IN LOW POSITION. NO S/S OF DISTRESS NOTED. CALL LIGHT IN REACH. WILL CTM.
--- NOTE | 2018-11-23 07:12 | NUR ---
PT ASLEEP, DID NOT WAKE WHEN I ENTERED. DID NOT FURTHER DISTURB AT THIS TIME. CL IN REACH. SRX2.
[2018-11-23 08:05] VITALS: BP 129/75
[2018-11-23 12:26] VITALS: BP 122/71
--- NOTE | 2018-11-23 12:44 | NUR ---
PT ASKING TO HAVE IV REMOVED, STATES THAT SHE WILL BE GOING HOME TODAY. INFORMED PT THAT I WOULD NOTIFY HER PRIMARY NURSE. PT DENIES ANY OTHER NEEDS AT THIS TIME.AGREE WITH LPNS ASSESSMENT.
--- NOTE | 2018-11-23 15:08 | NUR ---
PT ESCORTED OUT VIA WHEELCHAIR. DRIVING POV. NO CONCNERS OR COMPLAINTS AT THIS TIME. CL INREACH. SRX2.
--- NOTE | 2018-11-23 15:33 | HP ---
PATIENT: RENATA RIVERA MEDICAL RECORD: [id number] ACCOUNT: [id number] LOCATION:D. D.2139 : 42 ADMISSION DATE: 11/21/18 PCP: SHAUNA RYAN MD HISTORY AND PHYSICAL EXAMINATION DATE OF ADMISSION: 11/21/2018 CHIEF COMPLAINT: Abdominal pain. HISTORY: A 78-year-old female with history of recurrent diverticulitis, started having left lower quadrant and suprapubic abdominal pains on 11/16/2018. She takes Augmentin for this and started it that evening and continued it over the course of the next several days, twice a day. The pain got worse last night and she came into the ER early this morning. Her vital signs were stable. Her labs were stable. CT of abdomen and pelvis showed sigmoid diverticulitis. PAST MEDICAL AND SURGICAL HISTORY: Coronary artery disease, sick sinus syndrome, anxiety, depression, recurrent constipation, and recurrent diverticulitis. She has had Lyme disease years ago. PAST SURGICAL HISTORY: Coronary stents, hysterectomy, pacemaker, and lysis of adhesions by Dr. Galicia in 2010. ALLERGIES: CIPRO, FLAGYL, PLAVIX, AND TRAMADOL. HOME MEDICATIONS: Flecainide 100 mg p.r.n. atrial fibrillation. She was on Florinef 0.1 b.i.d., but her blood pressure has been stable. SOCIAL HISTORY: Retired. . She rescues animals. FAMILY HISTORY: Mother at 67 of lung cancer. Father at 84. He had dementia and stroke. Sister of lung cancer. Brother of some sort of cancer. Another brother of an DC. Another sibling at age 3. One living sister at 83, now diagnosed with lung cancer, though she never smoked. REVIEW OF SYSTEMS: GENERAL: She has had a gradual downhill slide of her weight. HEENT: No particular sinus or allergy problems. RESPIRATORY: No history of asthma or emphysema. CARDIAC: She has coronary artery disease, followed by Dr. eMdina. She had pacemaker placed for sick sinus syndrome. GASTROINTESTINAL: See above history. She is followed by Dr. Castillo for that and actually has surgery scheduled by Dr. Shore for late December. NEUROLOGIC: No migraines. No seizures. PSYCHIATRIC: She has depression and anxiety. PHYSICAL EXAMINATION: VITAL SIGNS: Temperature 97.9, pulse 84, respirations 20, and blood pressure 132/63. GENERAL: She is awake, alert, and currently does not appear to be in acute distress. HEENT: Unremarkable. NECK: Supple. HEART: Regular rate and rhythm. LUNGS: Fairly clear. HISTORY AND PHYSICAL [id number] RENATA RIVERA ABDOMEN: Soft. There is tenderness in the left lower quadrant and the suprapubic area. No guarding. No rebound. No mass. EXTREMITIES: No edema. NEUROLOGIC: Intact. LABORATORY DATA: CBC is normal with white count of 6800. Basic metabolic panel is normal. Liver functions are normal. Amylase is normal at 63. Lipase is normal at 157. Her urinalysis is normal. DIAGNOSTIC DATA: CT of abdomen and pelvis shows sigmoid diverticulitis with chronic stable findings as well, showing hepatic hemangioma, liver cyst, and renal cyst. ASSESSMENT: 1. Left lower quadrant and suprapubic abdominal pains. 2. Diverticulitis, recurrent. PLAN: Dr. Csatillo has been consulted. Other tests and procedures as warranted. TRANSINT:[id number] Voice Confirmation ID: [id number] DOCUMENT ID: [id number] SHAUNA RYAN MD at 1533 CC: [id number] DICTATION DATE: 11/22/18 1029 JAWBONE PULLER: 11/22/18 1106 DIS IN 11/23/18 [facility] [address] [place] [address]
--- NOTE | 2018-11-23 16:32 | MORECARE ---
CASE MANAGEMENT DISCHARGE SUMMARY PATIENT: RENATA RIVERA UNIT: [id number] ADM DATE: 11/21/18 AGE: 78 : 41 SEX: F ROOM/BED: D.4799 AUTHOR: KILLIAN MURO PHYSICIAN: REFERRING PHYSICIAN: SHAUNA RYAN MD DATE OF SERVICE: 11/23/18 Discharge Plan Patient Name: RENATA RIVERA [facility] [facility] 1940 Planned Disposition: Home Anticipated Discharge Date: 11/23/18 Discharge Date: 11/23/2018 Expected LOS: 2 Initial Reviewer: [email or web address] Initial Review Date: 11/21/2018 Generated: 11/23/18 5:31 pm DCPIA - Discharge Planning Initial Assessment Updated by [email or web address]: Suma Vera on 11/23/18 4:28 pm * Is the patient Alert and Oriented? Yes * How many steps to enter\exit or inside your home? 2-O/ 16-I * PCP DR SHAUNA RYAN * Pharmacy [facility] IN [place] * Preadmission Environment Home with Family * ADLs Independent * Equipment None * Other Equipment N/A * List name and contact numbers for known caregivers / representatives who currently or will assist patient after discharge: JEFFERSON RIVERA * Verbal permission to speak to the caregivers and representatives has been obtained from the patient. Yes * Community resources currently utilized None * Please name any agencies selected above. N/A * Additional services required to return to the preadmission environment? No * Can the patient safely return to the preadmission environment? Yes * Has this patient been hospitalized within the prior 30 days at any hospital? No Patient Name: RENATA RIVERA Page [id number] at 1632 All edits/amendments must be made on the electronic document DICTATION DATE: 11/23/18 163 HOSPICE NURSE PRACTITIONER: BREANNE 11/23/18 1631 RPT#: [id number] DC DATE:11/23/18 STATUS: DIS IN [facility] [address] [place] [address] END OF REPORT
--- NOTE | 2018-11-23 16:39 | MORECARE ---
CASE MANAGEMENT DISCHARGE SUMMARY PATIENT: RENATA RIVERA UNIT: [id number] ADM DATE: 11/21/18 AGE: 78 : 41 SEX: F ROOM/BED: D.5922 AUTHOR: KILLIAN MURO PHYSICIAN: REFERRING PHYSICIAN: SHAUNA RYAN MD DATE OF SERVICE: 11/23/18 Discharge Plan Patient Name: RENATA RIVERA Facility: [facility]:[place] : 1940 Planned Disposition: Home Anticipated Discharge Date: 11/23/18 Discharge Date: 11/23/2018 Expected LOS: 2 Initial Reviewer: [email or web address] Initial Review Date: 11/21/2018 Generated: 11/23/18 5:38 pm Comments DCP- Discharge Planning Updated by [email or web address]: Suma Vera on 11/23/18 3:[address] Patient Name: RENATA RIVERA Admission Status: ER Accout number: [id number] Admission Date: 11-21-2018 : 1940 Admission Diagnosis: Attending: SHAUNA RYAN Current LOS: 2 Anticipated DC Date: 11-23-2018 Planned Disposition: Home Primary Insurance: MEDICARE A & B Discharge Planning Comments: LATE ENTRY CM MET WITH THE PATIENT AND HER , JEFFERSON, AT THE BEDSIDE. PATIENT GAVE PERMISSION FOR CM TO SPEAK WITH THE BEING PRESENT. SHE IS DRESSED AND READY FOR DISCHARGE. IS INDEPENDENT IN HER CARE. DENIES ANY NEEDS. HER IS PROVIDING TRANSPORTATION TO HOME. NO DME. PHARMACY- [facility] IN [place] PCP- DR RYAN NO APPARENT NEEDS. Auto Mechanics Instructor: Suma Vera DCPIA - Discharge Planning Initial Assessment Updated by [email or web address]: Suma Vera on 11/23/18 4:28 pm * Is the patient Alert and Oriented? Yes * How many steps to enter\exit or inside your home? 2-O/ 16-I * PCP DR SHAUNA RYAN * Pharmacy [facility] IN [place] * Preadmission Environment Home with Family * ADLs Independent * Equipment None * Other Equipment N/A * List name and contact numbers for known caregivers / representatives who currently or will assist patient after discharge: JEFFERSON RIVERA * Verbal permission to speak to the caregivers and representatives has been obtained from the patient. Yes * Community resources currently utilized None * Please name any agencies selected above. N/A * Additional services required to return to the preadmission environment? No * Can the patient safely return to the preadmission environment? Yes * Has this patient been hospitalized within the prior 30 days at any hospital? No Last DP export: 11/23/18 3:32 p Patient Name: RENATA RIVERA Page [id number] at 1639 All edits/amendments must be made on the electronic document DICTATION DATE: 11/23/181637 WHEEL TRUER: BREANNE 11/23/181637 RPT#: [id number] DC DATE:11/23/18 STATUS: DIS IN [facility] [address] [place] [address] END OF REPORT
--- NOTE | 2018-11-24 12:01 | MORECARE ---
CASE MANAGEMENT DISCHARGE SUMMARY PATIENT: RENATA RIVERA UNIT: [id number] ADM DATE: 11/21/18 AGE: 78 : 41 SEX: F ROOM/BED: D.7857 AUTHOR: BHASKARDOC PHYSICIAN: REFERRING PHYSICIAN: SHAUNA RYAN MD DATE OF SERVICE: 11/24/18 Discharge Plan Patient Name: RENATA RIVERA Facility: [facility]:[place] : 1940 Planned Disposition: Home Anticipated Discharge Date: 11/23/18 Discharge Date: 11/23/2018 Expected LOS: 2 Initial Reviewer: [email or web address] Initial Review Date: 11/21/2018 Generated: 11/24/18 1:01 pm Comments DCP- Discharge Planning Updated by [email or web address]: Suma Vera on 11/23/18 3:[address] Patient Name: RENATA RIVERA Admission Status: ER Accout number: [id number] Admission Date: 11-21-2018 : 1940 Admission Diagnosis: Attending: SHAUNA RYAN Current LOS: 2 Anticipated DC Date: 11-23-2018 Planned Disposition: Home Primary Insurance: MEDICARE A & B Discharge Planning Comments: LATE ENTRY CM MET WITH THE PATIENT AND HER , JEFFERSON, AT THE BEDSIDE. PATIENT GAVE PERMISSION FOR CM TO SPEAK WITH THE BEING PRESENT. SHE IS DRESSED AND READY FOR DISCHARGE. IS INDEPENDENT IN HER CARE. DENIES ANY NEEDS. HER IS PROVIDING TRANSPORTATION TO HOME. NO DME. PHARMACY- [facility] IN [place] PCP- DR RYAN NO APPARENT NEEDS. Label Maker: Suma Vera DCPIA - Discharge Planning Initial Assessment Updated by [email or web address]: Suma Vera on 11/23/18 4:28 pm * Is the patient Alert and Oriented? Yes * How many steps to enter\exit or inside your home? 2-O/ 16-I * PCP DR SHAUNA RYAN * Pharmacy [facility] IN [place] * Preadmission Environment Home with Family * ADLs Independent * Equipment None * Other Equipment N/A * List name and contact numbers for known caregivers / representatives who currently or will assist patient after discharge: JEFFERSON RIVERA * Verbal permission to speak to the caregivers and representatives has been obtained from the patient. Yes * Community resources currently utilized None * Please name any agencies selected above. N/A * Additional services required to return to the preadmission environment? No * Can the patient safely return to the preadmission environment? Yes * Has this patient been hospitalized within the prior 30 days at any hospital? No Last DP export: 11/23/18 3:38 p Patient Name: RENATA RIVERA Page 70903 at 1201 All edits/amendments must be made on the electronic document DICTATION DATE: 11/24/18 1200 INSURANCE SOLICITOR: BREANNE 11/24/18 1200 RPT#: [id number] DC DATE:11/23/18 STATUS: DIS IN [facility] [address] [place] [address] END OF REPORT
== END 2018-11-23 15:10 | disposition home or self-care (01) | DRG 392 ==
LOC: D.ER 11:21 → D.M2 13:29
PROVIDERS: Family Medicine; ADMIT Family Medicine; ATTEND Family Medicine
DX: K57.92 Diverticulitis of intestine, part unspecified, without perforation or abscess without bleeding (principal); I48.91 Unspecified atrial fibrillation; Z95.0 Presence of cardiac pacemaker; K59.00 Constipation, unspecified

== ENCOUNTER 2018-12-01 13:19 | Inpatient (IN) | payer MEDICARE, BC ==
[~2018-12-01] VITALS: Ht 165.1 cm; Wt 54.4 kg
[~2018-12-01 13:19] MED LIST changes: +FLECAINIDE ACET50 MG PO; +[UNRECOGNIZED DRUG - OTHER]; +[UNRECOGNIZED DRUG - REMARK]
--- NOTE | 2018-12-01 14:30 | NUR ---
ADMITED TO ROOM 1208 VIA WHEELCHAIR FROM ADMISSIONS DIRECT ADMIT FROM DR. RYAN'S OFFICE. AWAKE AND ALERT, AMBULATORY TO BATHROOM. DX: DIVERTICULITIS. NEEDS IV ANTIBIOTICS. WILL CONTINUE TO MONITOR.
[2018-12-01 16:32] LABS: BASOPHILS 0.3 % (0-2); EOSINOPHILS 0.6 % (0-7); HEMOGLOBIN 13.9 g/dL (12-16); IMMATURE GRANULOCYTES 0.2 % (0-5); LYMPHOCYTES 28.7 % (15-50); MCH 30.2 pg (26.0-34.0); MCHC 33.9 g/dL (31.0-37.0); MCV 88.9 fL (80.0-100.0); MEAN PLATELET VOLUME 9.6 fL (7.4-10.4); NEUTROPHILS 62.2 % (40-80); RBC 4.61 10x6/uL (4.00-5.40); RDW 13.7 % (11.5-14.5); WBC 10.8 10x3/uL (4.8-10.8)
[2018-12-01 16:42] LABS: PLATELET COUNT 256 10x3/uL (130-400)
[2018-12-01 16:53] LABS: ALBUMIN 3.6 g/dL (3.4-5.0); BILIRUBIN - TOTAL 0.4 mg/dL (0.2-1.3); CALCIUM 9.2 mg/dL (8.5-10.1); CREATININE - SERUM 1.3 mg/dL (0.6-1.3); PROTEIN - SERUM 7.3 g/dL (6.4-8.2)
[2018-12-01 17:29] VITALS: BP 129/66
--- NOTE | 2018-12-01 17:55 | NUR ---
IV SITED IN RIGHT FOREARM QWITH #22G ANGIOCATH X 1 ATTEMPT PER MODESTO REVELES RN.
[2018-12-01 20:00] VITALS: BP 109/65
--- NOTE | 2018-12-01 20:41 | NUR ---
PATIENT RESTING IN BED AND DENIES NEEDS AT THIS TIME. PLACED HAT IN PATIENT'S TOILET FOR ACCURATE I&O. COMPLETED ADMISSION ASSESSMENT. BED IN LOWEST POSITION AND CALL LIGHT WITHIN REACH. ENCOURAGED THE PATIENT TO CALL IF SHE HAS NEEDS. WILL CONTINUE TO MONITOR.
[2018-12-01 20:44] VITALS: BP 109/65
--- NOTE | 2018-12-01 22:55 | NUR ---
SPOKE WITH MARCO A CLINICAL MOLECULAR GENETICIST TO PULL UNVERIFIED MEDS FOR PATIENT. FAXED ORDERS TO [phone]
[2018-12-02] VITALS: BP 107/53
[2018-12-02 04:00] VITALS: BP 100/58
[2018-12-02 07:31] LABS: BASOPHILS 0.4 % (0-2); EOSINOPHILS 1.1 % (0-7); HEMATOCRIT 38.3 % (36.0-48.0); HEMOGLOBIN 12.7 g/dL (12-16); IMMATURE GRANULOCYTES 0.1 % (0-5); LYMPHOCYTES 26.3 % (15-50); MCH 29.5 pg (26.0-34.0); MCHC 33.2 g/dL (31.0-37.0); MCV 88.9 fL (80.0-100.0); MEAN PLATELET VOLUME 9.9 fL (7.4-10.4); MONOCYTES 7.9 % (2-11); NEUTROPHILS 64.2 % (40-80); PLATELET COUNT 239 10x3/uL (130-400); RBC 4.31 10x6/uL (4.00-5.40); RDW 13.6 % (11.5-14.5)
[2018-12-02 07:32] LABS: WBC 7.6 10x3/uL (4.8-10.8)
[2018-12-02 07:55] LABS: ANION GAP 12.7 mmol/L (8-16); CALCIUM 8.4 mg/dL (8.5-10.1); CARBON DIOXIDE 25.3 mmol/L (21.0-32.0); CREATININE - SERUM 1.2 mg/dL (0.6-1.3)
--- NOTE | 2018-12-02 08:34 | HP ---
PATIENT: RENATA RIVERA MEDICAL RECORD: [id number] ACCOUNT: [id number] LOCATION:[address] : [birth year] ADMISSION DATE: 12/01/18 PCP: SHAUNA RYAN MD HISTORY AND PHYSICAL EXAMINATION DATE OF ADMISSION: 12/01/2018 CHIEF COMPLAINT: Recurrent diverticulitis with abdominal pain. HISTORY: A 78-year-old female with a history of recurrent diverticulitis, was admitted into the hospital on 11/21/2018 and treated with Zosyn for diverticulitis as SHE IS ALLERGIC TO FLUOROQUINOLONES AND FLAGYL. She has been on Augmentin at home. She got significantly better and wanted to go home and was discharged home back on Augmentin because there really has not been any other antibiotics that she is not allergic to that have been shown effective for diverticulitis. She has been having worsening pain since she got home and finally the pain was so bad today that she called and I directly admitted her. PAST MEDICAL HISTORY: Coronary artery disease, sick sinus syndrome, anxiety, depression, recurrent constipation, recurrent diverticulitis. She had Lyme disease many years ago. PAST SURGICAL HISTORY: Coronary stents, hysterectomy, pacemaker, and lysis of adhesions by Dr. Galicia in 2010. ALLERGIES: CIPRO, FLAGYL, PLAVIX, AND TRAMADOL. HOME MEDICATIONS: Flecainide 100 mg b.i.d. p.r.n. atrial fibrillation. She has been tried on Augmentin and Bactrim recently for her diverticulitis. SOCIAL HISTORY: Retired. . She and her feed many rescue animals. FAMILY HISTORY: Mother at 67 of lung cancer. Father at 84. He has had dementia and a stroke. Sister of lung cancer. Brother of some sort of cancer. Another brother of an [place]. Another sibling at age 3. One sister is 83, now diagnosed with lung cancer. REVIEW OF SYSTEMS: GENERAL: She has had a general downhill weight loss over the last several months. HEENT: No sinus or allergy problems. RESPIRATORY: No asthma or emphysema. CARDIAC: Has history of coronary artery disease and paroxysmal atrial fibrillation. She has had a pacemaker placed for sick sinus syndrome. GASTROINTESTINAL: See above history. She is followed by Dr. Castillo and actually has surgery scheduled by Dr. Shore in late December for her recurrent diverticulitis. NEUROLOGIC: No migraines. No seizures. PSYCHIATRIC: Depression and anxiety. PHYSICAL EXAMINATION: VITAL SIGNS: Temperature 98.2, pulse 72, respirations 20, blood pressure 109/65, O2 sat 98%. GENERAL: She is complaining of abdominal pain in the left lower quadrant. HISTORY AND PHYSICAL [id number] MIGUELRENATA BARAKAT HEENT: Unremarkable. NECK: Supple. HEART: Regular rate and rhythm without murmur. LUNGS: Clear. ABDOMEN: Soft with tenderness in the left lower quadrant and suprapubic area. EXTREMITIES: No edema. LABORATORY DATA: CBC with a white count of 10,800, hemoglobin 13.9, platelets number 256. Sodium 137, potassium 4.0, chloride 102, CO2 of 26, BUN 18, creatinine 1.3, glucose 91, calcium 9.2. Liver enzymes are all normal. ASSESSMENT: Recurrent diverticulitis with abdominal pain. PLAN: We will admit. Zosyn and antibiotics. GI has been consulted. Pain control. Other tests and procedures as warranted. TRANSINT:[id number] Voice Confirmation ID: [id number] DOCUMENT ID: [id number] SHAUNA RYAN MD at 0834 CC: [id number] DICTATION DATE: 12/01/182241 CRIMINAL INTELLIGENCE SPECIALIST: 12/01/18 2350 ADM IN [place] [address] [place] [address]
--- NOTE | 2018-12-02 08:46 | NUR ---
PT AM MEDS ADMINISTERED. DR RYAN IN TO SEE PT. PT DENIES NEEDS. WCTM.
[2018-12-02 09:12] VITALS: BP 94/52
[2018-12-02 12:30] VITALS: BP 111/60
--- NOTE | 2018-12-02 13:00 | MORECARE ---
CASE MANAGEMENT DISCHARGE SUMMARY PATIENT: RENATA RIVERA UNIT: [id number] ADM DATE: 12/01/18 AGE: 78 : 41 SEX: F ROOM/BED: D.1208 AUTHOR: KILLIAN MURO PHYSICIAN: REFERRING PHYSICIAN: SHAUNA RYAN MD DATE OF SERVICE: 12/02/18 Discharge Plan Patient Name: RENATA RIVERA [facility] [facility] 1940 Planned Disposition: Home Anticipated Discharge Date: Discharge Date: Expected LOS: Initial Reviewer: [email or web address] Initial Review Date: 12/02/2018 Generated: 12/02/18 2:00 pm Patient Name: RENATA RIVERA Page [id number] at 1300 All edits/amendments must be made on the electronic document DICTATION DATE: 12/02/18 1259 MOUTHPIECE MAKER: BREANNE 12/02/18 1259 RPT#: [id number] DC DATE: STATUS: ADM IN [facility] [address] [place] [address] END OF REPORT
--- NOTE | 2018-12-02 13:07 | MORECARE ---
CASE MANAGEMENT DISCHARGE SUMMARY PATIENT: RENATA RIVERA UNIT: [id number] ADM DATE: 12/01/18 AGE: 78 : [birth year] SEX: F ROOM/BED: D.1208 AUTHOR: KILLIAN MURO PHYSICIAN: REFERRING PHYSICIAN: SHAUNA RYAN MD DATE OF SERVICE: 12/02/18 Discharge Plan Patient Name: RENATA RIVERA Facility: [facility]:[place] : 1940 Planned Disposition: Home Anticipated Discharge Date: Discharge Date: Expected LOS: Initial Reviewer: [email or web address] Initial Review Date: 12/02/2018 Generated: 12/02/18 2:07 pm Comments DCP- Discharge Planning Updated by [email or web address]: Roya Davis on 12/02/18 12:[address] Patient Name: RENATA RIVERA Admission Status: Urgent Accout number: [id number] Admission Date: 12-01-2018 : 1940 Admission Diagnosis: Attending: SHAUNA RYAN Current LOS: 1 Anticipated DC Date: Planned Disposition: Home Primary Insurance: MEDICARE A & B Discharge Planning Comments: CM MET WITH PATIENT ABOUT DC PLANNING/NEEDS. PATIENT STATES PLANS TO DC TO HOME WITH . DENIES ANY NEEDS. CM WILL FOLLOW AND ASSIST NEEDED WITH DC PLANNING/NEEDS. Director Of Outpatient Services: Roya Davis DCPIA - Discharge Planning Initial Assessment Updated by [email or web address]: Roya Davis on 12/02/18 1:01 pm * Is the patient Alert and Oriented? Yes * PCP [facility] * [facility]acy [facility] * Preadmission Environment Home with Family * ADLs Independent * Equipment None * List name and contact numbers for known caregivers / representatives who currently or will assist patient after discharge: RENATA * Community resources currently utilized None * Additional services required to return to the preadmission environment? No * Can the patient safely return to the preadmission environment? Yes * Has this patient been hospitalized within the prior 30 days at any hospital? Yes Last DP export: 12/02/18 12:00 p Patient Name: RENATA RIVERA Page 44412 at 1307 All edits/amendments must be made on the electronic document DICTATION DATE: 12/02/18 1307 TILE SORTER: BREANNE 12/02/18 1307 RPT#: [id number] DC DATE: STATUS: ADM IN [facility] [address] [place] [address] END OF REPORT
[2018-12-02 14:56] VITALS: BMI 19.9
[2018-12-02 17:18] VITALS: BP 119/69
--- NOTE | 2018-12-02 19:40 | NUR ---
RESUMING PT CARE. PT IS ALERT LAYING IN BED WITH NO C/O VOICED AT THIS TIME. NO S/S OF DISTRESS NOTED. PT HAS A IV IN THE RT FOREARM AND 2 LITERS OF OXYGEN. BED IN LOW POSITION WITH CALL LIGHT IN REACH. WILL CONTINUE TO MONITOR PT AND FOLLOW PLAN OF CARE.
[2018-12-02 20:00] VITALS: BP 115/66
[2018-12-02 20:33] VITALS: Ht 165.1 cm; Wt 54.4 kg
[2018-12-03] VITALS: BP 127/67
--- NOTE | 2018-12-03 03:25 | NUR ---
I have reviewed this patient and I concur with the Shift Assessment completed by the Licensed Practical Nurse today this shift.
[2018-12-03 04:30] VITALS: BP 127/66
[2018-12-03 05:54] LABS: BASOPHILS 0.4 % (0-2); EOSINOPHILS 1.7 % (0-7); HEMATOCRIT 36.8 % (36.0-48.0); HEMOGLOBIN 12.5 g/dL (12-16); IMMATURE GRANULOCYTES 0.1 % (0-5); MCH 29.9 pg (26.0-34.0); MEAN PLATELET VOLUME 9.7 fL (7.4-10.4); MONOCYTES 8.9 % (2-11); NEUTROPHILS 60.9 % (40-80); PLATELET COUNT 236 10x3/uL (130-400); RBC 4.18 10x6/uL (4.00-5.40); RDW 13.5 % (11.5-14.5); WBC 7.2 10x3/uL (4.8-10.8)
[2018-12-03 06:15] LABS: ANION GAP 13.6 mmol/L (8-16); CALCIUM 8.5 mg/dL (8.5-10.1); CARBON DIOXIDE 24.4 mmol/L (21.0-32.0); PRE-ALBUMIN 16.4 mg/dL (18.0-35.7)
[2018-12-03 08:25] VITALS: BP 117/62
--- NOTE | 2018-12-03 08:50 | NUR ---
PT AM MEDS ADMINISTERED. PT DENIES NEEDS. WCTM.
[2018-12-03 20:00] VITALS: BP 132/71
--- NOTE | 2018-12-03 20:30 | NUR ---
PT SITTING UP IN BED, NO SIGNS OF DISTRESS. ALERT AND ORIENTED. DRANK ALL OF ORDERED MAG CITRATE. IV RIGHT FA INFUSING NS @ 100 AND PROCAL @ 30. DENIES PAIN AT THIS TIME. REMINDED PT SHE WAS NPO AFTER MIDNIGHT. PT VERBALIZED UNDERSTANDING. CL IN REACH, WILL CONTINUE TO MONITOR
[2018-12-04] VITALS: BP 117/65
[2018-12-04 04:00] VITALS: BP 128/82
[2018-12-04 07:38] LABS: BASOPHILS 0.3 % (0-2); EOSINOPHILS 2.6 % (0-7); HEMATOCRIT 37.7 % (36.0-48.0); HEMOGLOBIN 12.5 g/dL (12-16); IMMATURE GRANULOCYTES 0.3 % (0-5); LYMPHOCYTES 25.3 % (15-50); MCH 29.3 pg (26.0-34.0); MCHC 33.2 g/dL (31.0-37.0); MCV 88.3 fL (80.0-100.0); MEAN PLATELET VOLUME 10.1 fL (7.4-10.4); MONOCYTES 9.6 % (2-11); NEUTROPHILS 61.9 % (40-80); PLATELET COUNT 241 10x3/uL (130-400); RBC 4.27 10x6/uL (4.00-5.40); RDW 13.6 % (11.5-14.5); WBC 6.5 10x3/uL (4.8-10.8)
[2018-12-04 07:50] VITALS: BP 126/80
[2018-12-04 07:52] LABS: INR 1.01 (0.85-1.17); PROTIME 12.8 SECONDS (11.6-15.0)
[2018-12-04 07:59] LABS: ANION GAP 12.2 mmol/L (8-16); CALCIUM 8.6 mg/dL (8.5-10.1); CARBON DIOXIDE 26.5 mmol/L (21.0-32.0); POTASSIUM - SERUM 3.7 mmol/L (3.5-5.1)
[2018-12-04 12:44] VITALS: BP 139/72
--- NOTE | 2018-12-04 13:43 | NUR ---
PATIENT IN BED, SKIN W/D TO TOUCH, COLOR PINK, RESP. REGULAR AND EVEN AT 18.ABDOMEN SOFT WITH HYPOACTIVE BS. PROCALAMINE INFUSING AT 30 AND NS INFUSING AT 100 VIA RIGHT FOREARM WITH NO REDNESS OR SWELLING NOTED. DENIES C/O PAIN WHEN ASKED. C/L WITHIN REACH AND SR'S UP X'S 2.
--- NOTE | 2018-12-04 14:56 | NUR ---
Nutrition Follow Up: Chart reviewed, spoke with nursing. Pt is NPO for surgery today. BM: 12/04/18 Labs reviewed - noted Prealbumin 16.4 Meds noted including Procalamine @ 30 ml/hr Rec advancing ERNESTO as soon as medically feasible. RD following.
--- NOTE | 2018-12-04 15:59 | NUR ---
THIS NURSE AGREES WITH THE QUARTER INSPECTOR CHARTING/ASSESSMENT
--- NOTE | 2018-12-04 17:57 | NUR ---
PATIENT RETURNED TO ROOM FROM OR VIA BED, SKIN W/D TO TOUCH, COLOR PINK, RESP. REGULAR AND EVEN AT 18. PATIENT VERY EXCITED SHE DIDN'T HAVE AN ABCESS. IV INTACT WITHOUT REDNESS OR SWELLING. RETURNED AT 1745 VS: 97.2, 143/77, 73, 16, 99% O2 SAT ON RA. 1800 VS: 138/74, 72, 16, 97.6, 99% O2 SAT ON RA. CON'T TO MONITOR.
[2018-12-04 18:55] VITALS: BP 143/77
[2018-12-04 20:39] LABS: NEUT - BF 99 %
[2018-12-05 00:17] VITALS: BP 119/65
[2018-12-05 05:30] VITALS: BP 123/64
[2018-12-05 07:39] LABS: BASOPHILS 0.4 % (0-2); HEMATOCRIT 39.2 % (36.0-48.0); HEMOGLOBIN 13.2 g/dL (12-16); LYMPHOCYTES 26.3 % (15-50); MCH 29.5 pg (26.0-34.0); MCHC 33.7 g/dL (31.0-37.0); MCV 87.5 fL (80.0-100.0); MEAN PLATELET VOLUME 9.9 fL (7.4-10.4); MONOCYTES 7.8 % (2-11); NEUTROPHILS 62.5 % (40-80); PLATELET COUNT 251 10x3/uL (130-400); RBC 4.48 10x6/uL (4.00-5.40); RDW 13.5 % (11.5-14.5); WBC 6.9 10x3/uL (4.8-10.8)
--- NOTE | 2018-12-05 07:48 | NUR ---
PT SITTING UP ON SIDE OF BED EATING BREAKFAST. DENIES PAIN AT THIS TIME. A/0. UP AB VANDANA. IV TO R FOREARM WITH PROCAL @ 30, NS @ 100. RM AIR. NO FURTHER CONCNERS AT THIS TIME. VITALS STABLE. CL IN REACH. WILL CPOC.
[2018-12-05 07:54] LABS: ANION GAP 12.5 mmol/L (8-16); CALCIUM 9.1 mg/dL (8.5-10.1); CARBON DIOXIDE 26.6 mmol/L (21.0-32.0); POTASSIUM - SERUM 4.1 mmol/L (3.5-5.1)
[2018-12-05 08:10] VITALS: BP 133/73
--- NOTE | 2018-12-05 09:27 | NUR ---
PT HAD BM ALL OVER ROOM FLOOR AND BATHROOM FLOOR. PT CLEANED UP AND ASSISTED TO BATHROOM. PT STATED THAT SHE JUST COULDNT MAKE IT IN TIME. NO FURTHER CONERNS AT THIS TIME.
[2018-12-05 12:05] VITALS: BP 114/59
[2018-12-05 16:27] VITALS: BP 100/55
--- NOTE | 2018-12-05 17:05 | NUR ---
PT REFUSED FULL LIQUID TRAY, STATED THAT SHE HAD A TURKEY SANDWHICH LAST NIGHT AND TOLERATED IT FINE. DEMANDS TO HAVE A REGULAR DIET. PAGED DR. HADDAD ABOUT GETTING A REGULAR DIET.
[2018-12-05 20:26] VITALS: BP 114/63; BP 92/55
--- NOTE | 2018-12-05 22:33 | NUR ---
REST IN BED, CALL LIGHT IN REACH.
[2018-12-06] VITALS: BP 117/67
--- NOTE | 2018-12-06 01:51 | NUR ---
LAYING RIGHT SIDE, RESP EVEN, NO DISTRESS. CALL LIGHT IN REACH.
--- NOTE | 2018-12-06 03:14 | NUR ---
ASSESSED, PT IS ASLEEP WITH EASY UNLABORED RESPIRATIONS. NO DISTRESS IS NOTED AT THIS TIME.
--- NOTE | 2018-12-06 03:39 | NUR ---
REST QUIELTY IN BED, CALL LIGHT IN REACH.
[2018-12-06 04:00] VITALS: BP 120/66
--- NOTE | 2018-12-06 05:40 | NUR ---
REST IN BED, CALL LIGHT IN REACH.
[2018-12-06 06:38] LABS: BASOPHILS 0.3 % (0-2); EOSINOPHILS 3.6 % (0-7); HEMATOCRIT 38.1 % (36.0-48.0); HEMOGLOBIN 12.7 g/dL (12-16); IMMATURE GRANULOCYTES 0.1 % (0-5); LYMPHOCYTES 33.1 % (15-50); MCH 29.3 pg (26.0-34.0); MCHC 33.3 g/dL (31.0-37.0); MCV 87.8 fL (80.0-100.0); MEAN PLATELET VOLUME 9.8 fL (7.4-10.4); MONOCYTES 8.7 % (2-11); NEUTROPHILS 54.2 % (40-80); PLATELET COUNT 238 10x3/uL (130-400); RBC 4.34 10x6/uL (4.00-5.40); RDW 13.6 % (11.5-14.5); WBC 6.7 10x3/uL (4.8-10.8)
[2018-12-06 06:44] LABS: ANION GAP 11.5 mmol/L (8-16); CALCIUM 8.8 mg/dL (8.5-10.1); CARBON DIOXIDE 26.4 mmol/L (21.0-32.0); CREATININE - SERUM 1.1 mg/dL (0.6-1.3); POTASSIUM - SERUM 3.9 mmol/L (3.5-5.1)
--- NOTE | 2018-12-06 07:30 | NUR ---
ASSESSMENT COMPLETE. IV TO L FA PATENT. DENIES ANY NEEDS AT THIS TIME.
[2018-12-06 08:13] VITALS: BP 129/72
--- NOTE | 2018-12-06 11:50 | NUR ---
RESTING QUIETLY WITH EYES CLOSED. RESP EVEN,NONLABORED.
[2018-12-06 12:10] VITALS: BP 114/59
[2018-12-06 15:17] VITALS: BP 121/67
--- NOTE | 2018-12-06 16:52 | NUR ---
DENIES ANY NEEDS AT THIS TIME.
--- NOTE | 2018-12-06 19:30 | NUR ---
LYING IN BED WATCHING TV. ALERT AND ORIENTED X4. TALKATIVE WITH STAFF. RESP EVEN AND NONLABORED. BBS CTA. BS HYPERACTIVE X4 QUADS. DENIES PAIN. PROCAL @ 30 ML/HR AND NS @ 100 ML/HR INFUSING IN LT FOREARM WITHOUT DIFF. NO EDEMA NOTED. NO DISTRESS. CL IN REACH.
[2018-12-06 20:22] VITALS: BP 132/77
[2018-12-07 00:23] VITALS: BP 117/65
--- NOTE | 2018-12-07 04:52 | NUR ---
HAS RESTED WELL TONIGHT. NO DISTRESS. LYING ON RT SIDE IN BED WITH EYES CLOSED. RESP NONLABORED. CL IN REACH.
[2018-12-07 05:16] VITALS: BP 120/66
[2018-12-07 06:30] LABS: BASOPHILS 0.3 % (0-2); EOSINOPHILS 4.2 % (0-7); HEMATOCRIT 38.1 % (36.0-48.0); HEMOGLOBIN 12.9 g/dL (12-16); IMMATURE GRANULOCYTES 0.3 % (0-5); LYMPHOCYTES 32.3 % (15-50); MCH 29.9 pg (26.0-34.0); MCHC 33.9 g/dL (31.0-37.0); MCV 88.4 fL (80.0-100.0); MEAN PLATELET VOLUME 9.8 fL (7.4-10.4); NEUTROPHILS 53.9 % (40-80); PLATELET COUNT 243 10x3/uL (130-400); RBC 4.31 10x6/uL (4.00-5.40); RDW 13.3 % (11.5-14.5)
--- NOTE | 2018-12-07 07:20 | NUR ---
PT'S CALL LIGHT GOING OFF, WENT TO ANSWER CALL LIGHT. PT'S IV GOING OFF, INFUSING COMPLETE, NEW BAG OF NS HUNG AT THIS TIME. PT UP TO THE BATHROOD, HAD BM, DIARRHEA. PT A/O X4, RESP EVEN AND NONLABORED ON RA. LT FA INFUISNG PROCALAMINE AT 30 AND NS AT 100. PT DENIES ANY OTHER NEEDS AT THIS TIME. CALL LIGHT IN REACH, BEDSIDE RAILS X2, NAD NOTED,W ILL CONTINUE TO MONITOR.
[2018-12-07 07:49] LABS: ANION GAP 15.1 mmol/L (8-16); CALCIUM 8.9 mg/dL (8.5-10.1); CARBON DIOXIDE 23.9 mmol/L (21.0-32.0)
--- NOTE | 2018-12-07 08:51 | NUR ---
AM MEDS GIVEN AT THIS TIME. PT IN BED, DONE EATING BREAKFAST. PT DENIES ANY NEEDS AT THIS TIME. CALL LIGHT IN REACH, NAD NOTED,W ILL CONTINUE TO MONITOR.
[2018-12-07 08:59] VITALS: BP 115/70
[2018-12-07 12:00] VITALS: BP 126/66
[2018-12-07 17:38] VITALS: BP 117/67
--- NOTE | 2018-12-07 19:40 | NUR ---
LYING IN BED. ALERT AND ORIENTED X4. RESP EVEN AND NONLABORED. BBS CTA. ABD SOFT, NONTENDER. BS PRESENT X4 QUADS. REPORTS DIARRHEA TODAY. DENIES PAIN. AMBULATORY. NO EDEMA NOTED. PROCAL @ 30 ML/HR WITH NS @ 100 ML/HR INFUSING IN LT FOREARM WITHOUT DIFF. NO DISTRESS. SR ELEVATED X2. CL IN REACH.
[2018-12-07 23:31] VITALS: BP 135/73
--- NOTE | 2018-12-08 05:06 | NUR ---
HAS RESTED WELL TONIGHT. NO DISTRESS. LYING IN BED WITH EYES CLOSED. RESP EVEN AND NONLABORED. CL IN REACH.
[2018-12-08 06:13] VITALS: BP 126/77
[2018-12-08 06:47] LABS: BASOPHILS 0.3 % (0-2); EOSINOPHILS 3.4 % (0-7); HEMATOCRIT 38.4 % (36.0-48.0); HEMOGLOBIN 12.9 g/dL (12-16); IMMATURE GRANULOCYTES 0.2 % (0-5); MCH 29.5 pg (26.0-34.0); MCHC 33.6 g/dL (31.0-37.0); MCV 87.9 fL (80.0-100.0); MEAN PLATELET VOLUME 9.7 fL (7.4-10.4); MONOCYTES 6.7 % (2-11); NEUTROPHILS 48.4 % (40-80); PLATELET COUNT 249 10x3/uL (130-400); RBC 4.37 10x6/uL (4.00-5.40); RDW 13.6 % (11.5-14.5); WBC 6.2 10x3/uL (4.8-10.8)
[2018-12-08 07:06] LABS: ANION GAP 14.5 mmol/L (8-16); CALCIUM 9.1 mg/dL (8.5-10.1); CARBON DIOXIDE 26.4 mmol/L (21.0-32.0); CREATININE - SERUM 0.9 mg/dL (0.6-1.3); POTASSIUM - SERUM 3.9 mmol/L (3.5-5.1)
[2018-12-08 08:30] VITALS: BP 118/76
--- NOTE | 2018-12-08 09:19 | NUR ---
PT REFUSED TO TAKES HER MEDICATIONS STATED THAT SHE WAS GOING HOME TODAY AND DID NOT NEED TO TAKE THEM. PT A/O X4, RESP EVEN AND NONLABORED ON RA. DENIES ANY NEEDS AT THIS TIME. CALL LIGHT IN REACH, FAMILY AT BEDSIDE, NAD NOTED, WILL CONTINUE TO MONITOR.
--- NOTE | 2018-12-08 11:53 | NUR ---
WENT TO HANG IVPB ZOSYN. PT REFUSED TO GET ZOSYN AT THIS TIME. STATED THAT SHE IS WAITING ON THE DOCTOR TO GO HOME.
[2018-12-08 12:41] VITALS: BP 103/57
--- NOTE | 2018-12-08 14:26 | NUR ---
Low residue soft diet and pt eating ~70% of meals Pt reports the food is "so bad" and a "joke" Discussed some foods that may be better tolerated and custom ordered dinner and breakfast tomorrow Pt is drinking Ensure and agreed to 3 per day which provides over 1000 calories per day Pt is on Procalamine RD following per protocol
[2018-12-08 17:05] VITALS: BP 117/67
--- NOTE | 2018-12-08 21:08 | NUR ---
REST IN BED, CALL LIGHT IN REACH.
[2018-12-08 21:26] VITALS: BP 124/66
[2018-12-09 00:25] VITALS: BP 135/59
--- NOTE | 2018-12-09 02:29 | NUR ---
REST IN BED, RESP EVEN, NO DISTRESS. CONTINUE PLAN OF CARE.
--- NOTE | 2018-12-09 03:38 | NUR ---
I have reviewed this patient and I concur with the Shift Assessment completed by the Licensed Practical Nurse today this shift.
--- NOTE | 2018-12-09 05:02 | NUR ---
LAYING LEFT SIDE, CALL LIGHT IN REACH.
[2018-12-09 05:51] VITALS: BP 118/66
[2018-12-09 08:33] VITALS: BP 114/54
--- NOTE | 2018-12-09 11:00 | NUR ---
Observed pt at breakfast-pt reports no problems with lunch and dinner yesterday Pt drinking Ensure well Assisted pt with menu selections RD following
[2018-12-09 12:12] VITALS: BP 105/60
--- NOTE | 2018-12-09 13:51 | NUR ---
THIS NURSE AGREES WITH THE DATA PROCESSING MECHANIC ASSESSMENT AND CHARTING
--- NOTE | 2018-12-09 15:46 | MORECARE ---
CASE MANAGEMENT DISCHARGE SUMMARY PATIENT: RENATA CRANDALL UNIT: [id number] ADM DATE: 12/01/18 AGE: 78 : [birth year] SEX: F ROOM/BED: D.1208 AUTHOR: KILLIAN MURO PHYSICIAN: REFERRING PHYSICIAN: SHAUNA RYAN MD DATE OF SERVICE: 12/09/18 Discharge Plan Patient Name: RENATA CRANDALL Facility: [facility]:[place] : 1940 Planned Disposition: Home Anticipated Discharge Date: Discharge Date: Expected LOS: Initial Reviewer: [email or web address] Initial Review Date: 12/02/2018 Generated: 12/09/18 4:46 pm Comments DCP- Discharge Planning Updated by [email or web address]: Emely Raz on 12/09/18 2:[address] Late entry for 13:55 Patient Name: RENATA CRANDALL Encounter No: [id number] : 1940 Primary Insurance: MEDICARE A & B Anticipated DC Date: Planned Disposition: Home External Planned Provider: : DCP follow-up note: Patient and family in agreement with discharge plan. No changes to plan. Case management will follow and assist as needed. CM explained and served DC IMM. Emely Raz DCP- Discharge Planning Updated by [email or web address]: Roya Davis on 12/02/18 12:[address] Patient Name: RENATA CRANDALL Admission Status: Urgent Accout number: [id number] Admission Date: 12-01-2018 : 1940 Admission Diagnosis: Attending: SHAUNA RYAN Current LOS: 1 Anticipated DC Date: Planned Disposition: Home Primary Insurance: MEDICARE A & B Discharge Planning Comments: CM MET WITH PATIENT ABOUT DC PLANNING/NEEDS. PATIENT STATES PLANS TO DC TO HOME WITH . DENIES ANY NEEDS. CM WILL FOLLOW AND ASSIST NEEDED WITH DC PLANNING/NEEDS. Repair Cameraman: Roya Davis DCPIA - Discharge Planning Initial Assessment Updated by [id number]: Roya Davis on 12/02/18 1:01 pm * Is the patient Alert and Oriented? Yes * PCP [facility] * [facility]acy [facility] * Preadmission Environment Home with Family * ADLs Independent * Equipment None * List name and contact numbers for known caregivers / representatives who currently or will assist patient after discharge: RENATA * Community resources currently utilized None * Additional services required to return to the preadmission environment? No * Can the patient safely return to the preadmission environment? Yes * Has this patient been hospitalized within the prior 30 days at any hospital? Yes Coverage Notice Reviewer: [id number] Nicki Emely Crandall Notice Issued Date-Time: 12/09/2018 13:55 Notice Type: IM Discharge Notice Notice Delivered To: Patient Relationship to Patient: Self Durable Medical Equipment Technician Name: Delivery Method: - Julia Days: Prior Verbal Notification: Recipient Understood Notice: Yes Recipient Signature: Yes Med Rec Note Co-signed by Attending: Coverage Notice Comment: Last DP export: 12/02/18 12:07 p Patient Name: RENATA CRANDALL Page [id number] at 1546 All edits/amendments must be made on the electronic document DICTATION DATE: 12/09/18 1546 AGRICULTURE SPECIALIST: BREANNE 12/09/18 1546 RPT#: [id number] DC DATE: STATUS: ADM IN [facility] [address] [place] [address] END OF REPORT
--- NOTE | 2018-12-09 16:59 | NUR ---
PATIENT DISCHARGED AMBULATORY WITH , MATT REMOVEDM, PAPER WORK SIGNED AND PT. VERBALIZED UNDERSTANDING OF PAPER WORK AND INSTRUCTIONS. ALL BELONGINGS SENT WITH PT. D/C WITH VIA PRIVATE VEHICLE.
--- NOTE | 2018-12-10 10:35 | MORECARE ---
CASE MANAGEMENT DISCHARGE SUMMARY PATIENT: RENATA CRANDALL UNIT: [id number] ADM DATE: 12/01/18 AGE: 78 : 42 SEX: F ROOM/BED: D.1208 AUTHOR: KILLIAN MURO PHYSICIAN: REFERRING PHYSICIAN: SHAUNA RYAN MD DATE OF SERVICE: 12/10/18 Discharge Plan Patient Name: RENATA CRANDALL Facility: [facility]:[place] : 1940 Planned Disposition: Home Anticipated Discharge Date: Discharge Date: 12/09/2018 Expected LOS: Initial Reviewer: [email or web address] Initial Review Date: 12/02/2018 Generated: 12/10/18 11:35 am Comments DCP- Discharge Planning Updated by [email or web address]: Emely Raz on 12/09/18 2:[address] Late entry for 13:55 Patient Name: RENATA CRANDALL Encounter No: [id number] : 1940 Primary Insurance: MEDICARE A & B Anticipated DC Date: Planned Disposition: Home External Planned Provider: : DCP follow-up note: Patient and family in agreement with discharge plan. No changes to plan. Case management will follow and assist as needed. CM explained and served DC IMM. Emely Raz DCP- Discharge Planning Updated by [id number]: Roya Davis on 12/02/18 12:[address] Patient Name: RENATA CRANDALL Admission Status: Urgent Accout number: [id number] Admission Date: 12-01-2018 : 1940 Admission Diagnosis: Attending: SHAUNA RYAN Current LOS: 1 Anticipated DC Date: Planned Disposition: Home Primary Insurance: MEDICARE A & B Discharge Planning Comments: CM MET WITH PATIENT ABOUT DC PLANNING/NEEDS. PATIENT STATES PLANS TO DC TO HOME WITH . DENIES ANY NEEDS. CM WILL FOLLOW AND ASSIST NEEDED WITH DC PLANNING/NEEDS. Sonogram Technician: Roya Davis DCPIA - Discharge Planning Initial Assessment Updated by [email or web address]: Roya Davis on 12/02/18 1:01 pm * Is the patient Alert and Oriented? Yes * PCP [facility] * [facility] * Preadmission Environment Home with Family * ADLs Independent * Equipment None * List name and contact numbers for known caregivers / representatives who currently or will assist patient after discharge: RENATA * Community resources currently utilized None * Additional services required to return to the preadmission environment? No * Can the patient safely return to the preadmission environment? Yes * Has this patient been hospitalized within the prior 30 days at any hospital? Yes Coverage Notice Reviewer: [email or web address] Nicki Emely Crandall Notice Issued Date-Time: 12/09/2018 13:55 Notice Type: IM Discharge Notice Notice Delivered To: Patient Relationship to Patient: Self Glaze Wiper Name: Delivery Method: - Julia Days: Prior Verbal Notification: Recipient Understood Notice: Yes Recipient Signature: Yes Med Rec Note Co-signed by Attending: Coverage Notice Comment: Last DP export: 12/09/18 2:46 p Patient Name: RENATA CRANDALL Page 32275 at 1035 All edits/amendments must be made on the electronic document DICTATION DATE: 12/10/18 1035 MUSICAL PERFORMER: BREANNE 12/10/18 1035 RPT#: [id number] DC DATE:12/09/18 STATUS: DIS IN [facility] [address] [place] [address] END OF REPORT
== END 2018-12-09 17:01 | disposition home or self-care (01) | DRG 391 ==
LOC: D.M3 13:19 → D.SDCHOLD 13:19 → D.M3 14:11
PROVIDERS: Internal Medicine Gastroenterology; Specialist; Surgery; ADMIT Family Medicine; ATTEND Family Medicine
PROC: 0W9J3ZZ Drainage of Pelvic Cavity, Percutaneous Approach (ICD-10-PCS; principal; 2018-12-04 16:15)
DX: K57.20 Diverticulitis of large intestine with perforation and abscess without bleeding (principal); K68.9 Other disorders of retroperitoneum; I25.10 Atherosclerotic heart disease of native coronary artery without angina pectoris; F41.9 Anxiety disorder, unspecified; F32.9 Major depressive disorder, single episode, unspecified; I48.91 Unspecified atrial fibrillation; E86.0 Dehydration; K59.00 Constipation, unspecified; R19.7 Diarrhea, unspecified; K62.89 Other specified diseases of anus and rectum; N94.89 Other specified conditions associated with female genital organs and menstrual cycle; Z95.0 Presence of cardiac pacemaker; N73.9 Female pelvic inflammatory disease, unspecified

== ENCOUNTER 2018-12-02 15:21 | Inpatient (IN) | payer MEDICARE, BC ==
[~2018-12-02] VITALS: Ht 165.1 cm; Wt 54.0 kg
--- NOTE | ~2018-12-02 | DS ---
PATIENT:RENATA RIVERA :[birth year] MEDICAL RECORD: [id number] DISCHARGE SUMMARY ADMISSION DATE: 12/23/18 DISCHARGE DATE: 12/26/18 DATE OF ADMISSION: 12/23/2018 DATE OF DISCHARGE: 12/26/2018 ADMISSION DIAGNOSES: 1. Recurrent diverticulitis. 2. Atrial fibrillation. DISCHARGE DIAGNOSES: 1. Recurrent diverticulitis. 2. Atrial fibrillation. PROCEDURE: Hand-assisted laparoscopic sigmoid colectomy on 12/23/2018. CONSULTATIONS: None. REPORT OF HOSPITALIZATION: The patient was admitted to the hospital after a successful hand-assisted laparoscopic sigmoid colectomy for recurrent diverticulitis. The patient's main complaints postoperatively were pain and dry mouth. These 2 things slowly improved over the next couple of days. She was tolerating full liquid diet on the day of discharge and her pain was controlled with IV Toradol and p.o. pain meds. She denies nausea or vomiting. She was also having flatus and bowel movements. At that point, she was felt to be stable for discharge home. DISCHARGE INSTRUCTIONS: She will return to clinic or call with any questions or concerns, fevers, chills, nausea, vomiting, or worsening abdominal pain. ACTIVITIES: No heavy lifting or straining for 6 weeks postoperatively. FOLLOWUP: Follow up is in clinic with me in 7-10 days. TRANSINT:[id number] Voice Confirmation ID: [id number] DOCUMENT ID: [id number] MACARIO SANHCEZ MD CC: [id number] DICTATION DATE: 12/26/18 1029 MENDING CARRIER: 12/27/18 0351 DIS IN 12/26/18 [place] [id number] [place] [address]
[2018-12-22 12:42] LABS: BASOPHILS 0.5 % (0-2); EOSINOPHILS 0.7 % (0-7); HEMATOCRIT 41.5 % (36.0-48.0); HEMOGLOBIN 14.1 g/dL (12-16); IMMATURE GRANULOCYTES 0.1 % (0-5); LYMPHOCYTES 32.9 % (15-50); MCH 30.1 pg (26.0-34.0); MCV 88.5 fL (80.0-100.0); MEAN PLATELET VOLUME 9.8 fL (7.4-10.4); MONOCYTES 6.2 % (2-11); NEUTROPHILS 59.6 % (40-80); PLATELET COUNT 212 10x3/uL (130-400); RBC 4.69 10x6/uL (4.00-5.40); RDW 14.2 % (11.5-14.5); WBC 8.4 10x3/uL (4.8-10.8)
[2018-12-22 12:53] LABS: ANION GAP 10.8 mmol/L (8-16); CALCIUM 9.4 mg/dL (8.5-10.1); CARBON DIOXIDE 28.3 mmol/L (21.0-32.0); POTASSIUM - SERUM 4.1 mmol/L (3.5-5.1)
[2018-12-23] VITALS (7 sets, daily range): BP systolic 101–142; BP diastolic 55–68; BMI 19.8
[2018-12-23] MEDS ORDERED: FLORINEF 0.1 M0.1 MG PO (06:19)
[2018-12-23] MEDS ORDERED: FLECAINIDE ACE100 MG PO (06:20)
--- NOTE | 2018-12-23 11:49 | NUR ---
AT 1130 PATIENT MEETS DISCHARGE CRITERIA FOR PACU PHASE 1. NO BEDS ARE AVAILABLE ON MED/SURG FLOOR. PATIENT WILL NOW GO TO PHASE 2. WILL CONTINUE TO MONITOR.
--- NOTE | 2018-12-23 13:30 | NUR ---
PT RECEIVED FROM RECOVERY TO ROOM 2203 VIA STRETCHER. PT IS GROGGY, BUT EASY TO AROUSE. ALERT AND ORIENTED. RESP EVEN AND UNLABORED. DENIES PAIN AT THIS TIME. IV TO LEFT FOREARM WITH NS @ 100ML/HR INFUSING VIA PUMP. SITE WITHOUT REDNESS OR EDEMA. LOWER MID ABDOMEN DRESSING C/D/I. BANDAID TO RIGHT LOWER QUAD C/D/I. ONE STAPLE TO RIGHT LOWER QUADRANT INTACT AND UNCOVERED, SITE WITHOUT REDNESS EDEMA OR DRAINAGE. F/C PATENT TO GRAVITY DRAINING YELLOW URINE. ORIENTED TO CL AND BED CONTROLS. DENIES FURTHER QUESTIONS AT THIS TIME. CL WITHIN REACH. ENCOURAGED TO CALL WITH NEEDS. CONTINUE TO MONITOR.
--- NOTE | 2018-12-23 20:29 | NUR ---
AWAKE,ALERT.NO COMPLAINTS VOICED. RESP EVEN AND UNLABORED. NO DISTRESS NOTED. IV TO LFA WITHOUT REDNESS OR EDEMA NOTED. DRESSING TO MID ABD INTACT WITHOUT DRAINAGE NOTED. BANDAID TO RIGHT ABD INTACT WITH DRAINAGE. PATIENT COMPLAINS NOT HAVING ANTIBIOTICS ORDERED AFTER SURGERY. STATES" I HAD MAJOR SURGERY AND NO ANTIBIOTICS,YOU NEED TO CALL HIM NOW!!. STATES" I'M CALLING HIM TOO BECAUSE YOU HAVE TO HAVE ANTIBIOTICS AFTER SURGERY
--- NOTE | 2018-12-23 20:35 | NUR ---
CALL PLACED TO DR LEGGETT ( [employer]EARCH ENGINEER) WITH ORDERS RECIEVED FOR MEROPENEM [address] SANCHEZ TO ASSESS IN AM.
[2018-12-24 04:00] VITALS: BP 149/62
--- NOTE | 2018-12-24 04:24 | NUR ---
I have reviewed this patient and I concur with the Shift Assessment completed by the Licensed Practical Nurse today this shift.
[2018-12-24 05:28] LABS: BASOPHILS 0.1 % (0-2); EOSINOPHILS 0 % (0-7); HEMATOCRIT 38.5 % (36.0-48.0); HEMOGLOBIN 12.7 g/dL (12-16); IMMATURE GRANULOCYTES 0.3 % (0-5); LYMPHOCYTES 15.4 % (15-50); MCH 29.5 pg (26.0-34.0); MCV 89.3 fL (80.0-100.0); MEAN PLATELET VOLUME 10.4 fL (7.4-10.4); MONOCYTES 8.4 % (2-11); NEUTROPHILS 75.8 % (40-80); PLATELET COUNT 210 10x3/uL (130-400); RBC 4.31 10x6/uL (4.00-5.40); RDW 14.2 % (11.5-14.5)
[2018-12-24 05:53] LABS: WBC 15.8 10x3/uL (4.8-10.8)
[2018-12-24 06:04] LABS: ANION GAP 15.1 mmol/L (8-16); CALCIUM 8.2 mg/dL (8.5-10.1); CARBON DIOXIDE 23.8 mmol/L (21.0-32.0); CREATININE - SERUM 0.9 mg/dL (0.6-1.3); POTASSIUM - SERUM 3.9 mmol/L (3.5-5.1)
--- NOTE | 2018-12-24 09:00 | NUR ---
C/O NECK PAIN. STATES HER NECK IN SWOLLENA DN HARD TO SWALLOW. CONTACTED DR KING AND HE SAID SHE IS FINE AND DOES NEED TO SEE A SPECIALIST ABOUT THIS.
[2018-12-24 09:41] VITALS: BP 122/61
--- NOTE | 2018-12-24 09:57 | NUR ---
MORNING ASSESSMENT COMPELTE. SEE ASSESSMENT FLOWSHEET FOR FURTHER DETIALS. PT LYING IN BED AAO X4 TO PERSON, PLACE, TIME, AND SITUATION. DENIES NEEDS AT THIS TIME. CL IN REACH. SIDE RAILS UP X3 FOR PT SAEFTY. BED IN LOWEST POSITION.
[2018-12-24 13:58] VITALS: Ht 165.1 cm; Wt 54.0 kg
[2018-12-24 15:09] VITALS: BP 117/61
[2018-12-24 16:00] VITALS: BP 113/63
--- NOTE | 2018-12-24 17:45 | NUR ---
PLACED 20G PIV TO R FA X1 ATTEMPT- FLUSHES WELL FAM AT BEDSIDE. PT TOLERATED WELL.
[2018-12-24 20:00] VITALS: BP 161/86
--- NOTE | 2018-12-24 20:49 | NUR ---
AWAKE,ALERT.NO COMPLAITNS VOICED. IV TO LFA INTACT WITHOUT REDNESS OR EDEMA NOTED. DRSG TO MID ABD INCISION WITHOUT DRAINAGE NOTED. ABD NONDISTENTED. CL IN REACH
[2018-12-25] VITALS: BP 130/68
--- NOTE | 2018-12-25 03:32 | NUR ---
I have reviewed this patient and I concur with the Shift Assessment completed by the Licensed Practical Nurse today this shift.
[2018-12-25 04:00] VITALS: BP 132/70
[2018-12-25 04:00] LABS: BASOPHILS 0.2 % (0-2); EOSINOPHILS 0.4 % (0-7); HEMATOCRIT 35.5 % (36.0-48.0); IMMATURE GRANULOCYTES 0.2 % (0-5); LYMPHOCYTES 10.6 % (15-50); MCH 29.8 pg (26.0-34.0); MCHC 33.8 g/dL (31.0-37.0); MCV 88.1 fL (80.0-100.0); MEAN PLATELET VOLUME 10.1 fL (7.4-10.4); MONOCYTES 6.3 % (2-11); NEUTROPHILS 82.3 % (40-80); PLATELET COUNT 170 10x3/uL (130-400); RBC 4.03 10x6/uL (4.00-5.40); RDW 14.2 % (11.5-14.5); WBC 12.5 10x3/uL (4.8-10.8)
[2018-12-25 04:09] LABS: CALCIUM 8.4 mg/dL (8.5-10.1); CARBON DIOXIDE 24.6 mmol/L (21.0-32.0); CREATININE - SERUM 0.8 mg/dL (0.6-1.3); POTASSIUM - SERUM 3.6 mmol/L (3.5-5.1)
[2018-12-25 08:33] VITALS: BP 129/71
--- NOTE | 2018-12-25 10:41 | NUR ---
MORNING ASSESSMENT COMPELTE. SEE ASSESSMENT FLOWSHEET FOR FURTHER DETIALS. PT LYING IN BED AAO X4 TO PERSON, PALCE, TIME, AND SITUATION. DENIES NEEDS AT THIS TIME. CL IN REACH. SIDE RAILS UP X3 FOR PT SAEFTY. BED IN LOWEST POSITION.
[2018-12-25 11:46] VITALS: BP 127/66
[2018-12-25 16:52] VITALS: BP 134/82
--- NOTE | 2018-12-25 20:30 | NUR ---
AWAKE,ALERT.UP AD VANDANA IN ROOM. RESP EVEN AND UNLABORED. NO DISTRESS NOTED. ABD INCISION WITH CLIPS INTACT. NO DRAINAGE NOTED. IV TO LFA INTACT WITHOUT REDNESS OR EDEMA . CL IN REACH
[2018-12-25 21:08] VITALS: BP 121/74
[2018-12-26 01:01] VITALS: BP 134/70
--- NOTE | 2018-12-26 01:13 | NUR ---
ASSESSED, PT IS ASLEEP WITH EASY UNLABORED RESPIRATIONS, AND NO DISTRESS NOTED. BED IS LOW,RAISL UP X'S 2 WITH THE CALL LIGHT AT HAND.
[2018-12-26 04:18] LABS: BASOPHILS 0.2 % (0-2); EOSINOPHILS 4.8 % (0-7); HEMATOCRIT 33.8 % (36.0-48.0); HEMOGLOBIN 11.3 g/dL (12-16); IMMATURE GRANULOCYTES 0.2 % (0-5); LYMPHOCYTES 31.6 % (15-50); MCH 29.5 pg (26.0-34.0); MCHC 33.4 g/dL (31.0-37.0); MCV 88.3 fL (80.0-100.0); MEAN PLATELET VOLUME 10.1 fL (7.4-10.4); MONOCYTES 9.9 % (2-11); NEUTROPHILS 53.3 % (40-80); PLATELET COUNT 162 10x3/uL (130-400); RBC 3.83 10x6/uL (4.00-5.40); RDW 14.4 % (11.5-14.5)
[2018-12-26 04:19] LABS: WBC 6.3 10x3/uL (4.8-10.8)
[2018-12-26 04:22] LABS: CALC OSMOLALITY 285 mosm/kg (275-300); CALCIUM 8.3 mg/dL (8.5-10.1); CARBON DIOXIDE 28.3 mmol/L (21.0-32.0); CHLORIDE - SERUM 110 mmol/L (98-107); CREATININE - SERUM 0.7 mg/dL (0.6-1.3); GLUCOSE 93 mg/dL (74-106); POTASSIUM - SERUM 3.5 mmol/L (3.5-5.1); SODIUM 144 mmol/L (136-145); UREA NITROGEN 9 mg/dL (7-18); eGFR NON AFRICAN AMERICAN 86 mL/min (90-120)
[2018-12-26 05:19] VITALS: BP 125/72
[2018-12-26 08:43] VITALS: BP 123/73
[2018-12-26] MEDS ORDERED: NORCO-10 PO (10:23)
--- NOTE | 2018-12-26 11:14 | NUR ---
PATIENT AWAKE WATCHING TV. NO NEEDS AT THIS TIME. READY FOR IV THERAPY TO BE DISCONTINUED AND DISCHARGED
--- NOTE | 2018-12-26 11:36 | MORECARE ---
CASE MANAGEMENT DISCHARGE SUMMARY PATIENT: RENATA RIVERA UNIT: [id number] ADM DATE: 12/23/18 AGE: 78 : 42 SEX: F ROOM/BED: D.2203 AUTHOR: BHASKAR,DOC PHYSICIAN: REFERRING PHYSICIAN: MACARIO SANCHEZ MD DATE OF SERVICE: 12/26/18 Discharge Plan Patient Name: RENATA RIVERA Facility: [facility]:[place] : 1940 Planned Disposition: Home or Self Care Anticipated Discharge Date: Discharge Date: Expected LOS: Initial Reviewer: [email or web address] Initial Review Date: 12/23/2018 Generated: 12/26/18 12:36 pm Comments DCP- Discharge Planning Updated by [email or web address]: Orly Lanza on 12/26/18 10:[address] Patient Name: RENATA RIVERA Admission Status: Elective Accout number: [id number] Admission Date: 12-23-2018 : 1940 Admission Diagnosis: Attending: MACARIO SANCHEZ Current LOS: 3 Anticipated DC Date: Planned Disposition: Home or Self Care Primary Insurance: MEDICARE A & B Discharge Planning Comments: CM met with patient to complete initial dc planning assessment. CM educated patient on the CM role and verbal consent given by patient to complete assessment. Patient lives at home with her where she is independent with her care.. At discharge patient plans to return home and feels this is a safe discharge. Aguila, her will be her log driver home. CM discussed availability of home health, rehab services, and medical equipment. Patient denied known discharge needs at this time. IMM served and explained. CM will continue to follow and will assist as needed with dc plans/needs. Seat Installer: Orly Lanza DCPIA - Discharge Planning Initial Assessment Updated by [email or web address]: Orly Lanza on 12/26/18 11:27 am * Is the patient Alert and Oriented? Yes * How many steps to enter\exit or inside your home? * PCP [facility] * Pharmacy [facility] IN [place] * Preadmission Environment Home with Family * ADLs Independent * Equipment None * List name and contact numbers for known caregivers / representatives who currently or will assist patient after discharge: AGUILA RIVERA [phone] * Verbal permission to speak to the caregivers and representatives has been obtained from the patient. N/A * Community resources currently utilized None * Additional services required to return to the preadmission environment? No * Can the patient safely return to the preadmission environment? Yes * Has this patient been hospitalized within the prior 30 days at any hospital? No Coverage Notice Reviewer: [email or web address] Nicki Lanza Notice Issued Date-Time: 12/26/2018 11:20 Notice Type: IM Discharge Notice Notice Delivered To: Patient Relationship to Patient: Playback Operator Name: Delivery Method: HAND - Hand Delivered Julia Days: Prior Verbal Notification: Recipient Understood Notice: Yes Recipient Signature: Yes Med Rec Note Co-signed by Attending: Coverage Notice Comment: Patient Name: RENATA RIVERA Page [id number] at 1136 All edits/amendments must be made on the electronic document DICTATION DATE: 12/26/18 1136 TOOL DESIGN CHECKER: BREANNE 12/26/18 1136 RPT#: [id number] DC DATE: STATUS: ADM IN [facility] [address] [place] [address] END OF REPORT
--- NOTE | 2018-12-26 11:55 | NUR ---
REPORT TAKEN AFTER SURGERY.
--- NOTE | 2018-12-26 12:03 | NUR ---
DISCHARGE INSTRUCTIONS GIVEN. VERBALIZED UNDERSTANDING. IV THERAPY DC'ED WITH TIP INTACT. REQUESTED SOME STRAWS, ICE, AND ICE WATER. ADVISED TO LET ME KNOW WHEN SHE IS READY TO LEAVE.
--- NOTE | 2018-12-26 14:04 | OP ---
PATIENT NAME: RENATA RIVERA MEDICAL RECORD: [id number] :[birth year] LOCATION:D.MS Philippe2203 ADMISSION DATE:12/23/18 SURGEON: CASIMIRO SANCHEZ MD DATE OF OPERATION: 12/23/2018 PREOPERATIVE DIAGNOSES: 1. Recurrent diverticulitis. 2. Atrial fibrillation. POSTOPERATIVE DIAGNOSES: 1. Recurrent diverticulitis. 2. Atrial fibrillation. PROCEDURE: Hand-assisted laparoscopic sigmoid colectomy. SURGEON: Casimiro Sanchez MD DAY CAMP COUNSELOR: Katie Rausch APRN REPORT OF PROCEDURE: The patient's abdomen was prepped and draped in sterile fashion. A skin incision was made in the midline just in the suprapubic region. Electrocautery was used to dissect through the subcutaneous tissues and fascia until we bluntly entered the abdominal cavity. A GelPort was then inserted with a 5-mm trocar within it. The insufflation was obtained. We placed another 5-mm trocar under direct visualization in the right lateral abdomen and a 12-mm trocar just anterior to the anterior superior iliac crest on the right side. Inspection of the patient's abdominal cavity showed there were inflammatory changes in the pelvis, but no sign of any fluid collections or abscesses. The patient had a very firm distal sigmoid and proximal rectum consistent with known history of recurrent diverticulitis. The proximal sigmoid colon appeared to be devoid of any inflammatory disease. We performed a mobilization of the left colon medially, taking down the white line of Toldt. We did not mobilize the splenic flexure. We came down to the sigmoid colon. We were able to mobilize this off of its inferior abdominal wall attachments. The pelvis was quite firm with inflammatory changes. There was a very firm area of fatty tissue, which was inflamed in the left side of the pelvis. This was taken down using electrocautery. There were some vascular structures present within this and this was treated with clips. We were eventually able to free up all of these structures and get posterior to the rectum. A window was made in the mid rectum past the area of inflammatory diverticulitis. This was transected with a 60 blue load Endo-SHADIA stapler. The mesentery was taken down with a 60 white load Endo-SHADIA stapler. The mesentery was taken down sequentially and then we eventually fired 1 last fire of a 60 white load Endo-SHADIA stapler. We were able to eviscerate the sigmoid colon through the wound protector at this point. The mesentery was taken down on the proximal sigmoid colon and tied off with a 2-0 silk. We transected the proximal sigmoid colon using electrocautery and placed a 2-0 Prolene as a pursestring around it. The 29 EEA anvil was inserted and this pursestring was tied down tightly. We then cleared off any of the fatty tissue that was present on the distal end of the colon. We inspected the colon and rectal area. There was some bleeding posteriorly and this was treated with electrocautery and clips. At the conclusion of the case, we did not see any evidence of any surgical bleeding. We then performed an end-to-end anastomosis with a 29 EEA stapler. First, the patient's anus was dilated with 3 different anal dilators followed by the 29 EEA stapler. This was done under direct visualization. At the conclusion of this, we had 2 good rings of tissue present OPERATIVE REPORT [id number] RENATA RIVERA and we checked the staple line under water by instilling air into the rectum. There was no sign of any leakage present of this anastomosis. We then oversewed the anastomosis using Lemberted 3-0 silks. The area was inspected one last time and any source of bleeding that was found was treated with electrocautery. The abdomen was irrigated out thoroughly with normal saline and the bowel was placed back down gently into the abdominal cavity. The midline fascia was then closed with a running #1 loop PDS times 2. We irrigated out the wounds with normal saline. The 12-mm trocar site fascia was then closed with a [id number] 0 Vicryl. The skin incisions were all closed with nikia and dressed appropriately. COMPLICATIONS: None. CONDITION: Stable. ANESTHESIA: General endotracheal. BLOOD LOSS: About 50 mL. TRANSINT:[id number] Voice Confirmation ID: [id number] DOCUMENT ID: [id number] CASIMIRO SANCHEZ MD at 1404 CC: SHAUNA RYAN MD and AMOS LAWS DO [id number] DICTATION DATE: 12/23/18 1019 MEAL PACKER: 12/23/18 1223 ADM IN [facility] [address] [place] [address]
== END 2018-12-26 13:30 | disposition home or self-care (01) | DRG 331 ==
LOC: D.MS 12-23 06:00 → D.SDCHOLD 12-23 06:00 → D.MS 12-23 12:38
PROVIDERS: ADMIT Surgery; ATTEND Surgery
PROC: 0DBN0ZZ Excision of Sigmoid Colon, Open Approach (ICD-10-PCS; principal; 2018-12-23 08:00)
DX: K57.32 Diverticulitis of large intestine without perforation or abscess without bleeding (principal); I48.91 Unspecified atrial fibrillation